=== PATIENT | female | born 1990 | race Two or more races ===

== ENCOUNTER 2018-08-08 16:55 | Inpatient (IN) | payer MEDICARE | END 2018-08-11 20:00 | disposition left against medical advice (07) | DRG 894 | LOC: C.ER 16:55 → C.7D 19:09 | PROC: HZ2ZZZZ Detoxification Services for Substance Abuse Treatment (ICD-10-PCS; principal; 2018-08-08) | PROC: HZ86ZZZ Medication Management for Substance Abuse Treatment, Clonidine (ICD-10-PCS; 2018-08-08) | PROC: HZ80ZZZ Medication Management for Substance Abuse Treatment, Nicotine Replacement (ICD-10-PCS; 2018-08-08) | PROC: GZ3ZZZZ Medication Management (ICD-10-PCS; 2018-08-08) | PROC: HZ59ZZZ Individual Psychotherapy for Substance Abuse Treatment, Supportive (ICD-10-PCS; 2018-08-08) | PROC: HZ56ZZZ Individual Psychotherapy for Substance Abuse Treatment, Psychoeducation (ICD-10-PCS; 2018-08-08) | DX: F10.230 Alcohol dependence with withdrawal, uncomplicated (principal); F11.20 Opioid dependence, uncomplicated; F13.20 Sedative, hypnotic or anxiolytic dependence, uncomplicated; F41.9 Anxiety disorder, unspecified; F60.3 Borderline personality disorder; F17.210 Nicotine dependence, cigarettes, uncomplicated; Y90.6 Blood alcohol level of 120-199 mg/100 ml; G40.909 Epilepsy, unspecified, not intractable, without status epilepticus; K31.84 Gastroparesis; K58.9 Irritable bowel syndrome, unspecified; F50.9 Eating disorder, unspecified ==

== ENCOUNTER 2018-08-19 14:25 | Inpatient (IN) | payer MEDICARE ==
[2018-08-19 14:25] VITALS: BMI 19.5
--- NOTE | 2018-08-19 14:29 | C.PDOC ---
History Of Present Illness 27 y/o female,w/PMhx of opiate abuse,IVDU, neuropathy, gastroparesis,and seizures, presents to the ER complaining of suicidal ideation which has been present for the past 1 week. Patient states that she wants to jump in front of car and she wants to overdose on home medications. Fiance at bedside states that patient has tried to overdose on Baclofen, Lyrica, Neurontin, and heroin 4 days prior. She states that she was evaluated for same complaint in [facility] 4 days ago. She was medically and psychiatrically cleared. However, she notes that she continues to have suicidal ideation. She and fiance watching her since she has been discharged deny that the patient overdosed or took any medications or drugs since being discharged from [facility]. She states that she has chronic abdominal pain which is mildly different from her usual pain. Denies having fever,chills, nausea, vomiting, diarrhea, vaginal discharge, vaginal bleeding, falls, and trauma. Time Seen by Provider: 08/19/18 14:29 Chief Complaint (Nursing): Psychiatric Evaluation History Per: Patient History/Exam Limitations: no limitations Onset/Duration Of Symptoms: Days Current Symptoms Are (Timing): Still Present Severity: Moderate Past Medical History Reviewed: Historical Data, Nursing Documentation, Vital Signs - Medical History PMH: Seizures Surgical History: No Surg Hx - [facility] Procedures DETOXIFICATION SERVICES FOR SUBSTANCE ABUSE TREATMENT (08/08/18) INDIV PSYCHOTHERAPY FOR SUBSTANCE ABUSE TREATMENT, SUPPORT (08/08/18) INDIV PSYCHOTHERAPY FOR SUBSTANCE ABUSE, PSYCHOEDUCATION (08/08/18) MEDICATION MANAGEMENT (08/08/18) MEDS MGMT FOR SUBSTANCE ABUSE TREATMENT, CLONIDINE (08/08/18) MEDS MGMT FOR SUBSTANCE ABUSE TREATMENT, NICOTINE REPLACE (08/08/18) Family History: States: No Known Family Hx - Social History Hx Alcohol Use: Yes Hx Substance Use: Yes - Immunization History Hx Tetanus Toxoid Vaccination: No Hx Influenza Vaccination: No Hx Pneumococcal Vaccination: No Review Of Systems Constitutional: Negative for: Fever, Chills Eyes: Negative for: Pain, Vision Change, Eyelid Inflammation, Redness ENT: Negative for: Ear Pain, Ear Discharge, Nose Congestion, Mouth Pain, Mouth Swelling Cardiovascular: Negative for: Chest Pain, Palpitations, Orthopnea, Edema, Light Headedness Respiratory: Negative for: Cough, Shortness of Breath, SOB with Excertion Gastrointestinal: Positive for: Abdominal Pain. Negative for: Nausea, Vomiting, Diarrhea, Constipation, Melena, Hematemesis Genitourinary: Negative for: Dysuria, Frequency, Vaginal Discharge, Vaginal Bleeding Musculoskeletal: Negative for: Neck Pain, Shoulder Pain, Back Pain Skin: Negative for: Lesions Neurological: Negative for: Weakness, Numbness, Headache Psych: Positive for: Suicidal ideation Physical Exam - Physical Exam Appears: Non-toxic, No Acute Distress Skin: Normal Color, Warm, Dry Head: Atraumatic, Normacephalic Eye(s): bilateral: Normal Inspection, PERRL, EOMI Ear(s): Bilateral: Normal Nose: Normal Oral Mucosa: Moist Tongue: Normal Appearing Lips: Normal Appearing Teeth: Normal Dentition Gingiva: Normal Appearing Throat: Normal, No Erythema, No Exudate, No Drooling, No Mass Neck: Normal, Normal ROM, No Midline Cervical Tenderness, Supple, Other (no meningeal signs) Chest: Symmetrical Cardiovascular: Rhythm Regular Respiratory: Normal Breath Sounds, No Rales, No Rhonchi, No Wheezing Gastrointestinal/Abdominal: Soft, Tenderness (epigastric tenderness), No Guarding, No Rebound Back: Normal Inspection, No CVA Tenderness Extremity: Normal ROM Extremity: Bilateral: Atraumatic, No Pedal Edema, Pelvis-Stable Neurological/Psych: Oriented x3, Normal Speech, Normal Cognition, No Cerebellar Signs, Normal Motor Gait: Steady ED Course And Treatment - Laboratory Results Result Diagrams: 08/20/18 06:24 08/20/18 06:24 Medical Decision Making Medical Decision Makin27 y/o female,w/PMhx of opiate abuse,IVDU, neuropathy, gastroparesis,and seizures, presents to the ER complaining of suicidal ideation which has been present for the past 1 week. Per fiance and pt, she denies any heroin use today or OD on any meds today. Impression: Suicidal Ideation, Recent Suicide Attempt, Abdominal Pain Plan: --Labs --EKG --CXR --UA --HCG, Qual. --CT-Abd Results EKG: NSR 95 bpm with normal intervals no STEMI RLL infilatrate vs atelactisis on XRAY, will rx possible, low probabily pna CURB 65 score low: no indication for admission pending CT abd pelvis 1803 CT w/ proctitis and constipation pt denies any rectal complaints however or rectal rash or itchiness procitis likely 2/2 constipation. will reccomend miralax to patient 1043 pt continues to be tired, will attempt narcan Pt awakens with narcan Per and patient: patient may have OD on atarax, heroin, neurontin, baclofen and lyrica No rigidity noted on exam, No clonus in LE. EKG w/ out AVR R wave elevation. No long Qt. 1115 pt becoming more somolent, but protecting airway well pt awakens w/ 2nd narcan, narcan drip ordered RN spoke to Poison control: no other intervention other than supportive management at this time. accepted by DR. Malave ICU accepted by DR. Gene KING Disposition - Disposition Disposition: HOSPITALIZED Disposition Time: 23:16 Condition: STABLE - Clinical Impression Clinical Impression: Drug overdose, Suicidal ideation - Scribe Statement The provider has reviewed the documentation as recorded by the Christopher Khan Provider Attestation: All medical record entries made by the Scribe were at my direction and personally dictated by me. I have reviewed the chart and agree that the record a ccurately reflects my personal performance of the history, physical exam, medical decision making, and the department course for this patient. I have also personally directed, reviewed, and agree with the discharge instructions and disposition.
[2018-08-19 15:17] LABS: HEMOGLOBIN 13.6 g/dL (11.0-16.0); LYMPH # 1.1 K/uL (1.0-4.3); LYMPH % 18.1 % (20.0-40.0); MEAN CELL VOLUME 87.8 fL (81.0-99.0); MEAN CORPUSCULAR HGB CONC 34.1 g/dL (33.0-37.0); MEAN PLATELET VOLUME 6.6 fL (7.2-11.7); MONO # 0.6 K/uL (0.0-0.8); MONO % 9.8 % (0.0-10.0); NEUT # 4.2 K/uL (1.8-7.0); NEUT % 72.1 % (50.0-75.0); RBC 4.52 Mil/uL (3.80-5.20); RED CELL DISTRIBUTION WIDTH 13.8 % (11.5-14.5); WHITE BLOOD COUNT 5.9 K/uL (4.8-10.8)
[2018-08-19 15:31] LABS: ACETAMINOPHEN < 10.0 ug/mL (10.0-30.0); ALB/GLOB RATIO 1.2 (1.0-2.1); ALBUMIN 4.2 g/dL (3.5-5.0); ALT/SGPT 27 U/L (9-52); AST/SGOT 39 U/L (14-36); BLOOD UREA NITROGEN 7 mg/dL (7-17); CALCIUM 9.8 mg/dl (8.6-10.4); GFR NON-AFRICAN AMERICAN > 60; SALICYLATE < 1.0 {null, mg/dL 1}
[2018-08-19 15:32] LABS: SQUAMOUS EPITHIAL 16 /hpf (0-5); URINE AMORPHOUS SEDIMENT MODERATE /ul (<OCC); URINE BILIRUBIN NEGATIVE (NEGATIVE); URINE BLOOD NEGATIVE (NEGATIVE); URINE CLARITY Turbid (Clear); URINE COLOR Amber (YELLOW); URINE GLUCOSE (UA) NORMAL (Normal); URINE LEUKOCYTE ESTERASE TRACE Leu/uL (Negative); URINE PROTEIN 1+ mg/dL (NEGATIVE)
--- NOTE | 2018-08-19 15:51 | RAD ---
HISTORY: Detox/Psy COMPARISON: None available. TECHNIQUE: Chest, one view. FINDINGS: LUNGS: Mild patchy right lower lobe atelectasis or infiltrate. Please note that chest x-ray has limited sensitivity for the detection of pulmonary masses. PLEURA: No significant pleural effusion identified. No definite pneumothorax . CARDIOVASCULAR: Heart size appears top normal. No significant atherosclerotic calcification present. OSSEOUS STRUCTURES: No acute osseous abnormality identified. VISUALIZED UPPER ABDOMEN: Unremarkable. OTHER FINDINGS: None. IMPRESSION: Mild patchy right lower lobe atelectasis or infiltrate.
[2018-08-19 15:57] LABS: BARBITURATES, UR POSITIVE (NEGATIVE); BENZODIAZEPINES, UR POSITIVE (NEGATIVE); OPIATES, UR POSITIVE (NEGATIVE); PHENCYCLIDINE, UR NEGATIVE (NEGATIVE)
[2018-08-19] MEDS ORDERED: Iohexol 350mg/ml 100 ML ONE ×2 (16:15→22:56)
--- NOTE | 2018-08-19 17:55 | CT ---
Date of service: 08/19/2018 PROCEDURE: CT Abdomen and Pelvis with contrast HISTORY: hx of ibs, p/w depression and abd pain COMPARISON: None available. TECHNIQUE: Contrast dose: 100 mL Omnipaque 350 IV Radiation dose: Total exam DLP = 488.91 mGy-cm. This CT exam was performed using one or more of the following dose reduction techniques: Automated exposure control, adjustment of the mA and/or kV according to patient size, and/or use of iterative reconstruction technique. FINDINGS: Evaluation limited due to paucity of intra-abdominal and intrapelvic fat. LOWER THORAX: No visible consolidation, pleural effusion, or pneumothorax. LIVER: Unremarkable. GALLBLADDER AND BILE DUCTS: Unremarkable. PANCREAS: Unremarkable. SPLEEN: Unremarkable. ADRENALS: Unremarkable. KIDNEYS AND URETERS: The kidneys enhance symmetrically. No hydronephrosis or obstructing calculus identified. VASCULATURE: No aortic aneurysm. No atherosclerotic calcification or mural plaque present. BOWEL: Stomach is nondistended. Lack of oral contrast limits evaluation for bowel pathology. Bowel loops appear within normal limits of caliber without evidence of obstruction. Severe diffuse constipation. Severe rectal wall thickening. APPENDIX: The appendix appears within normal limits of caliber. No secondary signs of acute appendicitis. PERITONEUM: No significant free fluid. No definite free air. LYMPH NODES: No bulky adenopathy identified. BLADDER: Unremarkable. REPRODUCTIVE: The uterus is present. BONES: No acute osseous abnormality is detected. OTHER FINDINGS: None. IMPRESSION: Severe rectal wall thickening; correlate clinically for possibility of proctitis. Further evaluation may be considered with colonoscopy if indicated. Severe diffuse constipation. Markedly limited study due to paucity of intra-abdominal and intrapelvic fat. Additional findings as above.
[2018-08-19] MEDS ORDERED: Naloxone 0.4 mg/ml Inj (Adult) IVP ONE ×2 (21:06→22:44)
[2018-08-19] MEDS ORDERED: Naloxone 0.4 mg/ml Inj (Adult) ONE ×2 (21:14→22:47)
[2018-08-19] MEDS ORDERED: Naloxone 0.4 mg/ml Inj (Adult) IVP STA (22:49)
[2018-08-19] MEDS ORDERED: Dextrose 5%/0.9% NS 1,000 ML IV SCH (23:00)
[2018-08-19] MEDS ORDERED: NALOXONE IVP ONE (23:00)
[2018-08-19] MEDS ORDERED: WATER IVP ONE (23:00)
[2018-08-19] MEDS ORDERED: DEXTROSE 5% IVP ONE (23:00)
[2018-08-19] MEDS ORDERED: Naloxone 0.4 mg/ml Inj (Adult) IVP PRN (23:04)
--- NOTE | 2018-08-19 23:13 | CP.PCM.CON ---
History of Present Illness - History of Present Illness History of Present Illness: 27 year old single female with past psychiatric history significant for borderline personality d/o, alcohol, opiate, benzo use disorder who presents to [facility]. ICU consulted as patient is more sedated and IV narcan was pusehd by ED physician. Patient is sleepy moving from one side of the bed to next. no other information is avaialbel Pmx: polysubstance abuse psych hX: has been admitted to multiple hospitals, including [facility] and [facility] Review of Systems - Review of Systems Systems not reviewed;Unavailable: Altered Mental Status Past Patient History - Tetanus Immunizations Tetanus Immunization: Unknown - Past Medical History & Family History Past Medical History?: Yes - Past Social History Smoking Status: Heavy Smoker > 10 Cigarettes Daily - CARDIAC Hx Cardiac Disorders: No Hx Hypertension: No - PULMONARY Hx Tuberculosis: No - NEUROLOGICAL Hx Seizures: Yes - HEMATOLOGICAL/ONCOLOGICAL Hx Cancer: No Hx Human Immunodeficiency Virus (HIV): No - MUSCULOSKELETAL/RHEUMATOLOGICAL Hx Falls: No - GASTROINTESTINAL Hx Irritable Bowel: Yes Other/Comment: gastropharesis - GENITOURINARY/GYNECOLOGICAL Hx Sexually Transmitted Disorders: No - PSYCHIATRIC Hx Substance Use: Yes - SURGICAL HISTORY Hx Surgeries: No - ANESTHESIA Hx Anesthesia: No Meds Allergies/Adverse Reactions: Allergies Allergy/AdvReac Type Severity Reaction Status Date / Time latex Allergy RASH Verified 08/08/18 17:01 metoclopramide [From Reglan] Allergy RASH Verified 08/08/18 17:01 seizure meds Allergy RASH Uncoded 06/28/18 17:02 - Medications Medications: Current Medications Enoxaparin Sodium (Lovenox) 30 mg SC DAILY STACY Dextrose/Sodium Chloride (Dextrose 5%/0.9% Ns 1000 Ml) 1,000 mls @ 100 mls/hr IV .Q10H STACY Naloxone HCl 2 mg/ Dextrose 1,005 mls @ 135 mls/hr IVP ONCE ONE Stop: 08/20/18 06:26 Naloxone HCl (Narcan) 0.4 mg IVP Q1H PRN PRN Reason: Other Physical Exam - Constitutional Appears: Non-toxic - Head Exam Head Exam: ATRAUMATIC - Respiratory Exam Respiratory Exam: NORMAL BREATHING PATTERN - Cardiovascular Exam Cardiovascular Exam: +S1, +S2 - GI/Abdominal Exam GI & Abdominal Exam: Normal Bowel Sounds, Soft - Extremities Exam Extremities exam: Positive for: normal inspection. Negative for: pedal edema Results - Vital Signs Recent Vital Signs: Last Vital Signs Temp 97.6 F 08/19/18 21:20 Pulse 77 08/19/18 22:48 Resp 14 08/19/18 22:48 BP 100/70 08/19/18 22:48 Pulse Ox 98 08/19/18 22:48 - Labs Result Diagrams: 08/19/18 15:13 08/19/18 15:13 Labs: Laboratory Results - last 24 hr 08/19/18 08/19/18 08/19/18 15:13 15:13 15:13 WBC 5.9 RBC 4.52 Hgb 13.6 Hct 39.7 MCV 87.8 MCH 30.0 MCHC 34.1 RDW 13.8 Plt Count 401 H D MPV 6.6 L Neut % (Auto) 72.1 Lymph % (Auto) 18.1 L [place] % (Auto) 9.8 Eos % (Auto) 0.0 Baso % (Auto) 0.0 Neut # (Auto) 4.2 Lymph # (Auto) 1.1 [place] # (Auto) 0.6 Eos # (Auto) 0.0 Baso # (Auto) 0.0 Sodium 142 Potassium 4.1 Chloride 102 Carbon Dioxide 30 Anion Gap 15 BUN 7 Creatinine 0.8 Est GFR ( Amer) > 60 Est GFR (Non-Af Amer) > 60 Random Glucose 98 Calcium 9.8 Phosphorus 6.0 H Magnesium 1.9 Total Bilirubin 0.3 AST 39 H D ALT 27 Alkaline Phosphatase 63 Total Protein 7.6 Albumin 4.2 Globulin 3.4 Albumin/Globulin Ratio 1.2 Urine Color Muna Urine Clarity Turbid Urine pH 7.0 Ur Specific [place] 1.016 Urine Protein 1+ H Urine Glucose (UA) Normal Urine Ketones Negative Urine Blood Negative Urine Nitrate Negative Urine Bilirubin Negative Urine Urobilinogen 2.0 H Ur Leukocyte Esterase Trace Urine WBC (Auto) 2 Urine RBC (Auto) 1 Ur Squamous Epith Cells 16 H Amorphous Sediment Moderate H Salicylates Urine Opiates Screen Urine Methadone Screen Acetaminophen Ur Barbiturates Screen Ur Phencyclidine Scrn Ur Amphetamines Screen U Benzodiazepines Scrn U Oth Cocaine Metabols U Cannabinoids Screen Alcohol, Quantitative < 10 08/19/18 08/19/18 15:13 15:13 WBC RBC Hgb Hct MCV MCH MCHC RDW Plt Count MPV Neut % (Auto) Lymph % (Auto) [place] % (Auto) Eos % (Auto) Baso % (Auto) Neut # (Auto) Lymph # (Auto) [place] # (Auto) Eos # (Auto) Baso # (Auto) Sodium Potassium Chloride Carbon Dioxide Anion Gap BUN Creatinine Est GFR ( Amer) Est GFR (Non-Af Amer) Random Glucose Calcium Phosphorus Magnesium Total Bilirubin AST ALT Alkaline Phosphatase Total Protein Albumin Globulin Albumin/Globulin Ratio Urine Color Urine Clarity Urine pH Ur Specific [place] Urine Protein Urine Glucose (UA) Urine Ketones Urine Blood Urine Nitrate Urine Bilirubin Urine Urobilinogen Ur Leukocyte Esterase Urine WBC (Auto) Urine RBC (Auto) Ur Squamous Epith Cells Amorphous Sediment Salicylates < 1.0 Urine Opiates Screen Positive H Urine Methadone Screen Negative Acetaminophen < 10.0 L Ur Barbiturates Screen Positive H Ur Phencyclidine Scrn Negative Ur Amphetamines Screen Negative U Benzodiazepines Scrn Positive U Oth Cocaine Metabols Negative U Cannabinoids Screen Negative Alcohol, Quantitative Assessment & Plan - Assessment and Plan (Free Text) Assessment: POlysubstance abuse: monitor for first 24 hours (alowing recreational drug to metabolize) -IVF: d5NS -narcan PRN RR <10 -ct head(pending) -BGM q6hrs contineu dvt/pud ppx -psych eval when awake QTC 467 - Date & Time Date: 08/19/18 Time: 23:15
[2018-08-19] MEDS ORDERED: WATER IV ONE (23:30)
[2018-08-19] MEDS ORDERED: DEXTROSE 5% IV ONE (23:30)
[2018-08-19] MEDS ORDERED: NALOXONE IV ONE (23:30)
[2018-08-19] MEDS: Dextrose 5%/Lactated Ringer's 1,000 ML IV SCH (23:40)
[2018-08-20 06:34] LABS: BASO % 0.1 % (0.0-2.0); LYMPH # 0.6 K/uL (1.0-4.3); LYMPH % 12.5 % (20.0-40.0); MEAN CELL VOLUME 87.7 fL (81.0-99.0); MEAN CORPUSCULAR HEMOGLOBIN 30.1 pg (27.0-31.0); MEAN CORPUSCULAR HGB CONC 34.3 g/dL (33.0-37.0); MEAN PLATELET VOLUME 6.7 fL (7.2-11.7); MONO # 0.3 K/uL (0.0-0.8); MONO % 6.3 % (0.0-10.0); NEUT # 4.1 K/uL (1.8-7.0); NEUT % 81.1 % (50.0-75.0); NRBC % 0.1 % (0.0-2.0); RBC 4.31 Mil/uL (3.80-5.20); RED CELL DISTRIBUTION WIDTH 13.7 % (11.5-14.5); WHITE BLOOD COUNT 5.1 K/uL (4.8-10.8)
--- NOTE | 2018-08-20 06:47 | CT ---
Date of service: 08/20/2018 PROCEDURE: CT HEAD WITHOUT CONTRAST. HISTORY: Lethargic. Overdose. COMPARISON: None available. TECHNIQUE: Axial computed tomography images were obtained through the head/brain without intravenous contrast. Radiation dose: Total exam DLP = 928.87 mGy-cm. This CT exam was performed using one or more of the following dose reduction techniques: Automated exposure control, adjustment of the mA and/or kV according to patient size, and/or use of iterative reconstruction technique. FINDINGS: HEMORRHAGE: No intracranial hemorrhage. BRAIN: No mass effect or edema. No atrophy or chronic microvascular ischemic changes. VENTRICLES: Unremarkable. No hydrocephalus. CALVARIUM: Unremarkable. PARANASAL SINUSES: Unremarkable as visualized. No significant inflammatory changes. MASTOID AIR CELLS: Unremarkable as visualized. No inflammatory changes. OTHER FINDINGS: None. IMPRESSION: No acute intracranial abnormality. If symptoms persists, consider correlation with MRI. A preliminary report was generated at 1:09 a.m. on 08/20/[address] Radha Parish from [facility].
[2018-08-20 06:55] LABS: ALB/GLOB RATIO 1.1 (1.0-2.1); ALBUMIN 3.3 g/dL (3.5-5.0); ALT/SGPT 20 U/L (9-52); AST/SGOT 38 U/L (14-36); BLOOD UREA NITROGEN 5 mg/dL (7-17); CALCIUM 9.2 mg/dl (8.6-10.4); GFR NON-AFRICAN AMERICAN > 60
[2018-08-20] MEDS ORDERED: Promethazine 12.5 mg/10 ml Syrup PO PRN (08:24)
[2018-08-20] MEDS: Dextrose 5%/Lactated Ringer's 1,000 ML IV SCH ×2 (09:30→18:37)
[2018-08-20] MEDS: Multivitamin (MVI) 10 ML, Thiamine 100 MG, Folic Acid 1 MG in Sodium Chloride 0.9% 1,00... IV ONE ×2 (09:30→12:35)
--- NOTE | 2018-08-20 10:06 | PCM.PSYCH ---
Initial Psychiatric Evaluation - Initial Psychiatric Evaluation Type of Admission: Voluntary Legal Status: Capacity Chief Complaint (in patient's own words): I tried to kill myself.' History of Present Illness and Precipitating Events: Pt is a 27 year old female with PMHx of mood disorder, borderline personality disorder, opioid use disorder and sedated/hypnotic use disorder presented to the [facility] ED after a suicide attempt by overdosing on multiple medications. Pt was examined at bedside in the ICU with the presence of security. Collaterals were obtained from the boyfriend. As per the patient's boyfriend, she has attempted to overdose over 7x in the past. He says she never finished detox before and always leaves. He says pt has been acting suicidal few a few days. She told him yesterday that she wanted to kill herself by running into oncoming traffic or she will cut her artery. When he came home from work yesterday 08/19/18 at 11am, pt was on the phone arguing with her mother. He notes she was panicking, but was lucid. He did not witness her using but believes she took Baclofen, Neurontin, Lyrica, and Heroin together to overdose. He brought her to [facility] in [place] and she walked there with him from [facility]. He notes that she was fine until they came to the hospital when she started to became disoriented and agitated. Patient reports a long history of mood disorder and polysubstance abuse disorder. As per the patient soon after discharge from the detox at . she relapsed on drugs and started abusing increasing amounts of heroin, alcohol, and benzodiazepines. She uses 10 bags of heroin per day and drinks 2 pints of vodka per day. Pt has been taking them consistently at this level for the past 3 months. Her last use was either 2 days ago or yesterday. As per the ED charts, multiple doses of Narcan was given when the patient was brought to the hospital. She reports irritable mood, racing thoughts, poor sleep and poor appetite. She also reports at times depressed mood, feelings of hopelessness and helplessness. She also reports withdrawal symptoms from heroin including nausea, vomiting, cramps, joint pains and muscle cramps. However she denies any auditory hallucinations or any paranoia. PMHx: None reported Current Medications: Active Medications Generic Name Dose Route Start Last Admin Trade Name Freq PRN Reason Stop Dose Admin Al Hydrox/Mg Hydrox/Simethicone 30 ml 08/20/18 11:30 Maalox 30 Ml PO ACHS [facility] Chlorpromazine 25 mg 08/20/18 08:41 08/20/18 09:00 Thorazine IM 25 mg Q4 PRN Administration nausea Clonidine HCl 0.1 mg 08/20/18 10:00 Catapres PO BID [facility] Enoxaparin Sodium 30 mg 08/20/18 10:00 Lovenox SC DAILY [facility] Erythromycin 250 mg 08/20/18 10:00 Erythromycin PO TID [facility] Protocol Dextrose/Lactated Ringer's 1,000 mls @ 100 mls/hr 08/19/18 23:30 08/19/18 23:40 Dextrose 5%/Lactated Ringer's IV 100 mls/hr .Q10H STACY Administration Multivitamins/Vitamin C 10 ml/ 1,011.2 mls @ 75 mls/hr 08/20/18 09:00 Thiamine HCl 100 mg/ Folic IV 08/20/18 22:28 Acid 1 mg/ Sodium Chloride .[id number] ONE Lorazepam 1 mg 08/20/18 09:11 08/20/18 09:19 Ativan IVP 1 mg Q6H PRN Administration Anxiety Naloxone HCl 0.4 mg 08/19/18 23:04 Narcan IVP Q1H PRN Other Past Psychiatric History - Past Psychiatric History Previous Treatment History: Inpatient Pertinent Medical Hx (Current Medical&Sleep Prob, Allergies): Allergies Allergy/AdvReac Type Severity Reaction Status Date / Time latex Allergy RASH Verified 08/08/18 17:01 metoclopramide [From Reglan] Allergy RASH Verified 08/08/18 17:01 seizure meds Allergy RASH Uncoded 06/28/18 17:02 Cyclobenzaprine [Flexeril] 5 mg PO BID PRN 08/08/18 Promethazine [Phenergan] 25 mg PO BID PRN 08/08/18 QUEtiapine [SEROquel] 300 mg PO HS 08/08/18 hydrOXYzine HCl [Atarax] 50 mg PO TID PRN 08/08/18 Review of Systems - Review of Systems All systems: reviewed and no additional remarkable complaints except DSM 5 DX - DSM 5 DSM 5 Diagnosis: Bipolar disorder depressed severe without psychotic features Alcohol use disorder severe Opioid use disorder severe Opioid withdrawal Sedated/hypnotic use disorder severe Sedative/hypnotic withdrawal - Recommended/Plan of Treatment Treatment Recommendations and Plan of Treatment: Bipolar disorder depressed severe without psychotic features Alcohol use disorder severe Opioid use disorder severe Opioid withdrawal Sedated/hypnotic use disorder severe Sedative/hypnotic withdrawal CBT Supportive therapy Psychoeducation Methadone taper for opiate withdrawal Ativan taper for sedated/hypnotic withdrawal Trazodone for insomnia Hydroxyzine for anxiety Neurontin for augmentation Paxil for depression. Patient is on one-to-one. She cannot contract for safety. She has history of multiple overdoses in the past. [facility] will be called for involuntary hospitalization. - Smoking Cessation Smoking Cessation Initiated: No
[2018-08-20] MEDS: Enoxaparin 30 mg Syringe SC SCH (10:26)
--- NOTE | 2018-08-20 10:46 | CP.PCM.PN ---
Subjective - Date & Time of Evaluation Date of Evaluation: 08/20/18 Time of Evaluation: 10:46 - Subjective Subjective: H&P dictated #[id number] Objective - Vital Signs/Intake and Output Vital Signs (last 24 hours): Temp Pulse Resp BP Pulse Ox 98.2 F 94 H 15 113/72 98 08/20/18 08:00 08/20/18 08:45 08/20/18 08:45 08/20/18 09:22 08/20/18 08:45 Intake and Output: 08/20/18 08/20/18 06:59 18:59 Intake Total 1410 500 Output Total 1150 300 Balance 260 200 - Medications Medications: Current Medications Al Hydrox/Mg Hydrox/Simethicone (Maalox 30 Ml) 30 ml PO ACHS [facility] Chlorpromazine (Thorazine) 25 mg IM Q4 PRN PRN Reason: nausea Last Admin: 08/20/18 09:00 Dose: 25 mg Clonidine HCl (Catapres) 0.1 mg PO BID [facility] Last Admin: 08/20/18 10:26 Dose: 0.1 mg Dicyclomine HCl (Bentyl) 10 mg PO Q6 PRN PRN Reason: Muscle spasm Last Admin: 08/20/18 10:44 Dose: 10 mg Enoxaparin Sodium (Lovenox) 30 mg SC DAILY [facility] Last Admin: 08/20/18 10:26 Dose: 30 mg Erythromycin (Erythromycin) 250 mg PO TID [facility]; Protocol Last Admin: 08/20/18 10:26 Dose: 250 mg Dextrose/Lactated Ringer's (Dextrose 5%/Lactated Ringer's) 1,000 mls @ 100 mls/hr IV .Q10H [facility] Last Admin: 08/19/18 23:40 Dose: 100 mls/hr Multivitamins/Vitamin C 10 ml/Thiamine HCl 100 mg/ Folic Acid 1 mg/ Sodium Chloride 1,011.2 mls @ 75 mls/hr IV .[id number] ONE Stop: 08/20/18 22:28 Loperamide HCl (Imodium) 2 mg PO Q8 PRN PRN Reason: Diarrhea Lorazepam (Ativan) 2 mg IVP Q4H PRN PRN Reason: Anxiety Naloxone HCl (Narcan) 0.4 mg IVP Q1H PRN PRN Reason: Other Ondansetron HCl (Zofran Tab) 4 mg PO Q8 PRN PRN Reason: Nausea/Vomiting Ondansetron HCl (Zofran Inj) 4 mg IVP Q6 PRN PRN Reason: Nausea/Vomiting - Labs Labs: 08/20/18 06:24 08/20/18 06:24
[2018-08-20] MEDS: Aluminum Hydroxide/Magnesium Hydroxide Susp (30 mL) PO SCH ×3 (11:54→21:30)
[2018-08-20] MEDS ORDERED: Iodixanol 320 MG/ML 100 ML BOTTLE IV ONE (15:54)
[2018-08-20] MEDS: POLYETHYLENE GLYCOL 3350 17 GM/Dose PACKET PO SCH (17:27)
--- NOTE | 2018-08-20 17:36 | CP.CCUPN ---
CCU Objective - Vital Signs / Intake & Output Vital Signs (Last 4 hours): Vital Signs Temp Pulse Resp BP Pulse Ox 08/20/18 15:00 97.4 F L 82 20 90/62 L 98 Intake and Output (Last 8hrs): Intake & Output 08/20/18 08/20/18 08/20/18 06:59 14:59 22:59 Intake Total 1410 1522.5 37.5 Output Total 1150 2200 500 Balance 260 -677.5 -462.5 Weight 104 lb 11.513 oz Intake: Intake, IV Amount 1410 412.5 37.5 Left Antecubital 810 0 Left Distal Port 600 412.5 37.5 Antecubital Oral 1110 Output: Urine 1150 1500 500 Urine, Voided 1150 1500 500 Stool 0 0 Emesis 0 700 Other: # Voids Urine, Voided 1 4 - Physical Exam Head: Positive for: Atraumatic, Normocephalic Pupils: Positive for: PERRL Extroacular Muscles: Positive for: EOMI Conjunctiva: Positive for: Normal Ears: Positive for: Normal Mouth: Positive for: Moist Mucous Membranes Neck: Positive for: Normal Range of Motion Respiratory/Chest: Positive for: Clear to Auscultation Cardiovascular: Positive for: Regular Rate and Rhythm Abdomen: Positive for: Normal Bowel Sounds. Negative for: Tenderness, Distention Neurological: Positive for: GCS=15, CN II-XII Intact Psychiatric: Positive for: Alert, Oriented x 3, Agitated - Medications Active Medications: Active Medications Generic Name Dose Route Start Last Admin Trade Name Freq PRN Reason Stop Dose Admin Al Hydrox/Mg Hydrox/Simethicone 30 ml 08/20/18 11:30 08/20/18 17:27 Maalox 30 Ml PO Not Given ACHS STACY Chlorpromazine 50 mg 08/20/18 14:30 Thorazine IM Q4H PRN Clonidine HCl 0.1 mg 08/20/18 10:00 08/20/18 17:02 Catapres PO Not Given BID STACY Dicyclomine HCl 10 mg 08/20/18 10:06 08/20/18 10:44 Bentyl PO 10 mg Q6 PRN Administration Muscle spasm Enoxaparin Sodium 30 mg 08/20/18 10:00 08/20/18 10:26 Lovenox SC 30 mg DAILY STACY Administration Erythromycin 250 mg 08/20/18 10:00 08/20/18 14:55 Erythromycin PO 250 mg TID STACY Administration Protocol Gabapentin 300 mg 08/20/18 18:00 Neurontin PO TID STACY Dextrose/Lactated Ringer's 1,000 mls @ 100 mls/hr 08/19/18 23:30 08/20/18 09:30 Dextrose 5%/Lactated Ringer's IV Not Given .Q10H STACY Multivitamins/Vitamin C 10 ml/ 1,011.2 mls @ 75 mls/hr 08/20/18 09:00 08/20/18 12:35 Thiamine HCl 100 mg/ Folic IV 08/20/18 22:28 75 mls/hr Acid 1 mg/ Sodium Chloride .[id number] Administration Lorazepam 2 mg 08/20/18 12:00 08/20/18 17:27 Ativan IVP 2 mg Q4H PRN Administration Anxiety Methadone HCl 20 mg 08/20/18 11:45 08/20/18 11:54 Methadone PO 08/24/18 11:44 20 mg Q24H STACY Administration Taper Naloxone HCl 0.4 mg 08/19/18 23:04 Narcan IVP Q1H PRN Other Ondansetron HCl 4 mg 08/20/18 10:06 Zofran Tab PO Q8 PRN Nausea/Vomiting Ondansetron HCl 4 mg 08/20/18 10:13 Zofran Inj IVP Q6 PRN Nausea/Vomiting Polyethylene Glycol 17 gm 08/20/18 18:00 08/20/18 17:27 Miralax PO 17 gm BID STACY Administration Trazodone HCl 50 mg 08/20/18 22:00 Desyrel PO HS [facility] - Patient Studies Lab Studies: Microbiology Studies 08/19/18 04:25 MRSA Culture (Admit) - Final Nose Lab Studies 08/20/18 08/20/18 08/20/18 Range/Units 16:32 06:24 06:24 WBC 5.1 (4.8-10.8) K/uL RBC 4.31 (3.80-5.20) Mil/uL Hgb 13.0 (11.0-16.0) g/dL Hct 37.8 (34.0-47.0) % MCV 87.7 (81.0-99.0) fL MCH 30.1 (27.0-31.0) pg MCHC 34.3 (33.0-37.0) g/dL RDW 13.7 (11.5-14.5) % Plt Count 404 H (130-400) K/uL MPV 6.7 L (7.2-11.7) fL Neut % (Auto) 81.1 H (50.0-75.0) % Lymph % (Auto) 12.5 L (20.0-40.0) % [place] % (Auto) 6.3 (0.0-10.0) % Eos % (Auto) 0.0 (0.0-4.0) % Baso % (Auto) 0.1 (0.0-2.0) % Neut # (Auto) 4.1 (1.8-7.0) K/uL Lymph # (Auto) 0.6 L (1.0-4.3) K/uL [place] # (Auto) 0.3 (0.0-0.8) K/uL Eos # (Auto) 0.0 (0.0-0.7) K/uL Baso # (Auto) 0.0 (0.0-0.2) K/uL Sodium 139 (132-148) mmol/L Potassium 4.2 (3.6-5.2) mmol/L Chloride 105 (98-107) mmol/L Carbon Dioxide 26 (22-30) mmol/L Anion Gap 13 (10-20) BUN 5 L (7-17) mg/dL Creatinine 0.7 (0.7-1.2) mg/dL Est GFR ( Amer) > 60 Est GFR (Non-Af Amer) > 60 POC Glucose (mg/dL) 127 H (65-110) mg/dL Random Glucose 127 H D (65-105) mg/dL Serum Osmolality (272-300) mosm/kg Calcium 9.2 (8.6-10.4) mg/dl Phosphorus 3.9 (2.5-4.5) mg/dL Magnesium 1.9 (1.6-2.3) mg/dL Total Bilirubin 0.3 (0.2-1.3) mg/dL AST 38 H (14-36) U/L ALT 20 (9-52) U/L Alkaline Phosphatase 52 (38-126) U/L Total Protein 6.2 L (6.3-8.3) g/dL Albumin 3.3 L D (3.5-5.0) g/dL Globulin 2.9 (2.2-3.9) gm/dL Albumin/Globulin Ratio 1.1 (1.0-2.1) Urine HCG, Qual (NEGATIVE) 08/19/18 08/19/18 08/19/18 Range/Units 23:12 15:36 06:24 WBC (4.8-10.8) K/uL RBC (3.80-5.20) Mil/uL Hgb (11.0-16.0) g/dL Hct (34.0-47.0) % MCV (81.0-99.0) fL MCH (27.0-31.0) pg MCHC (33.0-37.0) g/dL RDW (11.5-14.5) % Plt Count (130-400) K/uL MPV (7.2-11.7) fL Neut % (Auto) (50.0-75.0) % Lymph % (Auto) (20.0-40.0) % [place] % (Auto) (0.0-10.0) % Eos % (Auto) (0.0-4.0) % Baso % (Auto) (0.0-2.0) % Neut # (Auto) (1.8-7.0) K/uL Lymph # (Auto) (1.0-4.3) K/uL [place] # (Auto) (0.0-0.8) K/uL Eos # (Auto) (0.0-0.7) K/uL Baso # (Auto) (0.0-0.2) K/uL Sodium (132-148) mmol/L Potassium (3.6-5.2) mmol/L Chloride (98-107) mmol/L Carbon Dioxide (22-30) mmol/L Anion Gap (10-20) BUN (7-17) mg/dL Creatinine (0.7-1.2) mg/dL Est GFR ( Amer) Est GFR (Non-Af Amer) POC Glucose (mg/dL) 84 (65-110) mg/dL Random Glucose (65-105) mg/dL Serum Osmolality 292 (272-300) mosm/kg Calcium (8.6-10.4) mg/dl Phosphorus (2.5-4.5) mg/dL Magnesium (1.6-2.3) mg/dL Total Bilirubin (0.2-1.3) mg/dL AST (14-36) U/L ALT (9-52) U/L Alkaline Phosphatase (38-126) U/L Total Protein (6.3-8.3) g/dL Albumin (3.5-5.0) g/dL Globulin (2.2-3.9) gm/dL Albumin/Globulin Ratio (1.0-2.1) Urine HCG, Qual Negative (NEGATIVE) Laboratory Results - last 24 hr 08/19/18 08/19/18 08/19/18 06:24 15:36 23:12 WBC RBC Hgb Hct MCV MCH MCHC RDW Plt Count MPV Neut % (Auto) Lymph % (Auto) [place] % (Auto) Eos % (Auto) Baso % (Auto) Neut # (Auto) Lymph # (Auto) [place] # (Auto) Eos # (Auto) Baso # (Auto) Sodium Potassium Chloride Carbon Dioxide Anion Gap BUN Creatinine Est GFR ( Amer) Est GFR (Non-Af Amer) POC Glucose (mg/dL) 84 Random Glucose Serum Osmolality 292 Calcium Phosphorus Magnesium Total Bilirubin AST ALT Alkaline Phosphatase Total Protein Albumin Globulin Albumin/Globulin Ratio Urine HCG, Qual Negative 08/20/18 08/20/18 08/20/18 06:24 06:24 16:32 WBC 5.1 RBC 4.31 Hgb 13.0 Hct 37.8 MCV 87.7 MCH 30.1 MCHC 34.3 RDW 13.7 Plt Count 404 H MPV 6.7 L Neut % (Auto) 81.1 H Lymph % (Auto) 12.5 L [place] % (Auto) 6.3 Eos % (Auto) 0.0 Baso % (Auto) 0.1 Neut # (Auto) 4.1 Lymph # (Auto) 0.6 L [place] # (Auto) 0.3 Eos # (Auto) 0.0 Baso # (Auto) 0.0 Sodium 139 Potassium 4.2 Chloride 105 Carbon Dioxide 26 Anion Gap 13 BUN 5 L Creatinine 0.7 Est GFR ( Amer) > 60 Est GFR (Non-Af Amer) > 60 POC Glucose (mg/dL) 127 H Random Glucose 127 H D Serum Osmolality Calcium 9.2 Phosphorus 3.9 Magnesium 1.9 Total Bilirubin 0.3 AST 38 H ALT 20 Alkaline Phosphatase 52 Total Protein 6.2 L Albumin 3.3 L D Globulin 2.9 Albumin/Globulin Ratio 1.1 Urine HCG, Qual Radiology Impressions: Radiology Impressions Abdomen/Pelvis CT 08/19/18 15:00 IMPRESSION: Severe rectal wall thickening; correlate clinically for possibility of proctitis. Further evaluation may be considered with colonoscopy if indicated. Severe diffuse constipation. Markedly limited study due to paucity of intra-abdominal and intrapelvic fat. Additional findings as above. Head CT 08/19/18 23:01 IMPRESSION: No acute intracranial abnormality. If symptoms persists, consider correlation with MRI. A preliminary report was generated at 1:09 a.m. on 08/20/[address] Radha Parish from [employer]. Fingerstick Blood Sugar Results: 127 Critical Care Progress Note - Nutrition Nutrition: Nutrition Category Date Time Status Regular Diet [DIET] Diets 08/20/18 Breakfast Active Assessment/Plan (1) Opiate dependence Assessment and plan: Patient is medically stable for downgrade to the floors and discharge to inpatient psych for further treatment of her possible suicidal ideations, borderline personality disorder and aggressive drug addiction. Started on methadone and CIWA protocol. Critical Care time 35 minutes Current Visit: No Status: Acute
--- NOTE | 2018-08-20 17:58 | CT ---
Date of service: 08/20/2018 PROCEDURE: CT Angiography of the Brain. HISTORY: ams COMPARISON: None available. TECHNIQUE: CT angiography of the intracranial arteries was performed. Coronal and sagittal maximum intensity projection reformated images were generated. Radiation dose: Total exam DLP = 412.22 mGy-cm. This CT exam was performed using one or more of the following dose reduction techniques: Automated exposure control, adjustment of the mA and/or kV according to patient size, and/or use of iterative reconstruction technique. FINDINGS: RIGHT CAROTID ARTERIES: Common Carotid Artery: Normal. Carotid Bifurcation: Normal. Internal Carotid Artery:Normal. External Carotid Artery (proximal branches): Normal. LEFT CAROTID ARTERIES: Common Carotid Artery: Normal. Carotid Bifurcation: Normal. Internal Carotid Artery:Normal. External Carotid Artery (proximal branches): Normal. VERTEBRAL ARTERIES: Right Vertebral Artery: Normal. Left Vertebral Artery: Normal. INTERNAL CEREBRAL ARTERIES: Unremarkable. The skull base, petrous, cavernous and supraclinoid segments are bilaterally widely patent. ANTERIOR CEREBRAL ARTERIES: Unremarkable. A1 and A2 segments are widely patent. Smaller distal branches unremarkable, as visualized. MIDDLE CEREBRAL ARTERIES: Unremarkable. M1 and M2 segments are widely patent. Perisylvian branches grossly symmetric. POSTERIOR CIRCULATION: Basilar Artery: Unremarkable. Distal Vertebral Arteries: Unremarkable. Posterior Cerebral Arteries: Unremarkable. Posterior Inferior Cerebellar Arteries: Unremarkable. ANEURYSM/ VASCULAR MALFORMATIONS: None. OTHER FINDINGS: None. IMPRESSION: No evidence of arterial occlusion or critical stenosis.
--- NOTE | 2018-08-21 04:22 | HP ---
CHIEF COMPLAINT: Suicidal ideation and drug overdose on multiple medications. HISTORY OF PRESENT ILLNESS: Ms. Millan is a 27-year-old female with past medical history of gastroparesis, irritable bowel syndrome, seizures, IVDA opiate-induced, neuropathy, who had multiple admissions to the psych floor in the past, came in to the emergency room complaining of suicidal ideation for the past one week. The patient claims that she wants to jump in front of the car and wants to overdose on home medications. She tried to overdose on Baclofen, Lyrica, Neurontin, and heroin four days prior. It was documented in the ER physician's note that she was evaluated for the same complaint by [facility] four days ago. The patient was evaluated in the ED and is being admitted to ICU. When I examined the patient, she denied any headache, dizziness. Denied any chest pain, shortness of breath, or wheezing. Denied any nausea, vomiting. In the emergency room, the patient was lethargic. The patient was started on Narcan and admitted to ICU. PAST MEDICAL HISTORY: Irritable bowel syndrome, gastroparesis, seizures, borderline personality disorder, substance abuse. PAST SURGICAL HISTORY: Denies any past surgical history. FAMILY HISTORY: Nothing contributory to the present illness. PERSONAL HISTORY: She is single. Not having any children. SOCIAL HISTORY: Smokes half pack per day. Uses drugs. Requesting for methadone. ALLERGIES: SHE IS ALLERGIC TO HALDOL. MEDICATIONS: Her home medications include hydroxyzine 50 mg p.o. t.i.d., Seroquel 300 mg p.o. at bedtime, Phenergan 25 mg p.o. b.i.d., Flexeril 5 mg p.o. b.i.d. REVIEW OF SYSTEMS: As described in the history of present illness. All other systems reviewed and were found to be negative. PHYSICAL EXAMINATION: GENERAL: A young female lying in bed, in no acute distress. VITAL SIGNS: Blood pressure 104/69, pulse 82, respirations are 20, temperature 97.8 degrees Fahrenheit, O2 sat is 98% on room air. HEENT: Pupils are equal, round, reacting to light and accommodation. Extraocular muscles intact. No icterus. No pallor. No oral thrush. No pharyngeal congestion. NECK: Supple. No JVD. LUNGS: Bilateral vesicular breath sounds. No wheezing. No rhonchi. CARDIOVASCULAR SYSTEM: S1 and S2 present. Regular. ABDOMEN: Soft, nontender. Bowel sounds present. No guarding. No rigidity. No rebound tenderness noted. CENTRAL NERVOUS SYSTEM: Alert, awake, oriented x3. No focal deficits noted. EXTREMITIES: No edema. Palpable peripheral pulses. LABORATORY DATA: Labs done from the ED: WBC 5.9, hemoglobin 13.6, hematocrit 39.7, platelets 401. Sodium 142, potassium 4.1, chloride 102, bicarb 30, BUN 7, creatinine 0.8, glucose 98, calcium 9.8, phosphorus 6, magnesium 1.9. Total bilirubin 0.3, AST 39, ALT 27, alkaline phosphatase 63, total protein 7.6, albumin 4.2. UA: Specific gravity 1.016, pH 7. Urobilinogen 2. Urine drug screen positive for opiates, barbiturates, and benzos; alcohol negative. Abdomen and pelvis CT; severe diffuse constipation, marked limited study due to paucity of intraabdominal and intrapelvic fat, severe rectal wall thickening. Chest x-ray, mild patchy right lower lobe atelectasis or infiltrate. CT head, negative for any intracranial abnormality. CT head and neck, no evidence of arterial occlusion or critical stenosis. EKG consistent with normal sinus rhythm with sharp CT interval at 95 beats per minute. ASSESSMENT: A young female with past medical history of borderline personality disorder, mood disorder, irritable bowel syndrome, gastroparesis, seizures, recent admission to [facility] in the month of July for drug abuse and detoxification, was evaluated at [facility] and discharged from the medical center, admitted to hospital for her suicidal ideation. 1. Suicidal ideation. 2. Bipolar disorder with severe depression. 3. Polysubstance abuse, alcohol abuse. PLAN: The patient is being admitted to ICU, monitored in the ICU for drug overdose, one-to-one observation, neuro checks, fall precaution, seizure prevention, and psychiatric consult with Dr. Mendosa. The patient would benefit from inpatient psychiatric treatment. All the workup so far is negative. We will add social insurance administrator consult. We will add further recommendations as her clinical course progresses. Zenia Coleman MD
[2018-08-21] MEDS: Dextrose 5%/Lactated Ringer's 1,000 ML IV SCH ×2 (06:51→15:47)
[2018-08-21 08:42] LABS: HEMOGLOBIN 12.1 g/dL (11.0-16.0); MEAN CELL VOLUME 86.7 fL (81.0-99.0); MEAN CORPUSCULAR HEMOGLOBIN 29.8 pg (27.0-31.0); MEAN CORPUSCULAR HGB CONC 34.4 g/dL (33.0-37.0); MEAN PLATELET VOLUME 6.7 fL (7.2-11.7); RBC 4.05 Mil/uL (3.80-5.20); RED CELL DISTRIBUTION WIDTH 13.9 % (11.5-14.5); WHITE BLOOD COUNT 5.1 K/uL (4.8-10.8)
[2018-08-21] MEDS: Aluminum Hydroxide/Magnesium Hydroxide Susp (30 mL) PO SCH ×4 (08:42→21:33)
[2018-08-21] MEDS: Enoxaparin 30 mg Syringe SC SCH (09:28)
[2018-08-21] MEDS: POLYETHYLENE GLYCOL 3350 17 GM/Dose PACKET PO SCH ×2 (09:28→18:41)
--- NOTE | 2018-08-21 11:06 | CP.PCM.PN ---
Subjective - Date & Time of Evaluation Date of Evaluation: 08/21/18 Time of Evaluation: 11:06 - Subjective Subjective: Discharge summary dictated #[id number] Objective - Vital Signs/Intake and Output Vital Signs (last 24 hours): Temp Pulse Resp BP Pulse Ox 98 F 87 20 124/78 97 08/21/18 07:38 08/21/18 07:38 08/21/18 07:38 08/21/18 09:30 08/21/18 07:38 Intake and Output: 08/21/18 08/21/18 06:59 18:59 Intake Total 600 Balance 600 - Medications Medications: Current Medications Al Hydrox/Mg Hydrox/Simethicone (Maalox 30 Ml) 30 ml PO ACHS ON LICENSE OF [facility] Last Admin: 08/21/18 08:42 Dose: Not Given Chlorpromazine (Thorazine) 50 mg IM Q4H PRN Last Admin: 08/21/18 09:37 Dose: 50 mg Clonidine HCl (Catapres) 0.1 mg PO BID ON LICENSE OF [facility] Last Admin: 08/21/18 09:27 Dose: 0.1 mg Dicyclomine HCl (Bentyl) 10 mg PO Q6 PRN PRN Reason: Muscle spasm Last Admin: 08/20/18 17:41 Dose: 10 mg Enoxaparin Sodium (Lovenox) 30 mg SC DAILY ON LICENSE OF [facility] Last Admin: 08/21/18 09:28 Dose: 30 mg Erythromycin (Erythromycin) 250 mg PO TID ON LICENSE OF [facility]; Protocol Last Admin: 08/21/18 09:27 Dose: 250 mg Gabapentin (Neurontin) 300 mg PO TID ON LICENSE OF [facility] Last Admin: 08/21/18 09:28 Dose: 300 mg Hydroxyzine HCl (Atarax) 25 mg PO Q6H ON LICENSE OF [facility] Last Admin: 08/21/18 09:40 Dose: 25 mg Dextrose/Lactated Ringer's (Dextrose 5%/Lactated Ringer's) 1,000 mls @ 100 mls/hr IV .Q10H ON LICENSE OF [facility] Last Admin: 08/21/18 06:51 Dose: Not Given Lactulose (Enulose) 20 gm PO HS PRN PRN Reason: Constipation Lorazepam (Ativan) 2 mg IVP Q4H PRN PRN Reason: Anxiety Last Admin: 08/21/18 10:58 Dose: 2 mg Methadone HCl (Methadone) 20 mg PO Q24H ON LICENSE OF [facility]; Taper Stop: 08/24/18 11:44 Last Admin: 08/20/18 11:54 Dose: 20 mg Naloxone HCl (Narcan) 0.4 mg IVP Q1H PRN PRN Reason: Other Ondansetron HCl (Zofran Tab) 4 mg PO Q8 PRN PRN Reason: Nausea/Vomiting Ondansetron HCl (Zofran Inj) 4 mg IVP Q6 PRN PRN Reason: Nausea/Vomiting Polyethylene Glycol (Miralax) 17 gm PO BID ON LICENSE OF [facility] Last Admin: 08/21/18 09:28 Dose: 17 gm Trazodone HCl (Desyrel) 50 mg PO [facility] Last Admin: 08/20/18 21:20 Dose: 50 mg - Labs Labs: 08/21/18 08:30 08/20/18 06:24
[2018-08-21] MEDS ORDERED: Magnesium Citrate Oral SOL (300 ml) PO STA (11:57)
--- NOTE | 2018-08-21 12:00 | CP.PCM.PCO ---
Physician Communication Note - Physician Communication Note Physician Communication Note: see above
--- NOTE | 2018-08-21 12:51 | CP.PCM.PCO ---
Physician Communication Note - Physician Communication Note Physician Communication Note: see above
--- NOTE | 2018-08-21 20:29 | PCM.BM ---
Treatment Plan Problems - Problems identified on initial assessmt feelings of worthlessness Date Initiated: 08/21/18 Time Initiated: 20:28 Assessment reference: NA Status: Active hopelessness/helplessness Date Initiated: 08/21/18 Time Initiated: 20:30 Assessment reference: NA Status: Active suicidal ideation Date Initiated: 08/21/18 Time Initiated: 20:31 Assessment reference: NA Status: Active Treatment assets and liabiliti Patient Assests: cooperative, ADL independent, negotiates basic needs, cognitively intact Patient Liabilities: substance abuse, medical problems - Milieu Protocol Maintain good personal hygiene: daily Encourage regular showers, daily Remind patient to perform daily oral care, daily Assist patient to perform ADL's, every shift Encourage regular showers, every shift Remind patient to perform daily oral care, every shift Assist patient to perform ADL's Conduct patient checks and document Observation sheet: Q15 minutes Maintain personal safety: every shift Educate patient to report safety concerns to staff, every shift Monitor environment for contraband/sharps Medication safety: Monitor for expected outcome, potential side effects: every shift, Assess barriers to learning: every shift, Assess readiness for medication education: every shift Milieu Narrative: Bipolar disorder depressed severe without psychotic features Alcohol use disorder severe Opioid use disorder severe Opioid withdrawal Sedated/hypnotic use disorder severe Sedative/hypnotic withdrawal CBT Supportive therapy Psychoeducation Methadone taper for opiate withdrawal Ativan taper for sedated/hypnotic withdrawal Trazodone for insomnia Hydroxyzine for anxiety Neurontin for augmentation Paxil for depression. Patient is on one-to-one. She cannot contract for safety. She has history of multiple overdoses in the past. [facility] will be called for involuntary hospitalization. Discharge/Continuing Care - Treatment Team Participation Patient/Family/SO Statement: Bipolar disorder depressed severe without psychotic features Alcohol use disorder severe Opioid use disorder severe Opioid withdrawal Sedated/hypnotic use disorder severe Sedative/hypnotic withdrawal CBT Supportive therapy Psychoeducation Methadone taper for opiate withdrawal Ativan taper for sedated/hypnotic withdrawal Trazodone for insomnia Hydroxyzine for anxiety Neurontin for augmentation Paxil for depression. Patient is on one-to-one. She cannot contract for safety. She has history of multiple overdoses in the past. [facility] will be called for involuntary hosp italization.
[2018-08-22 07:50] LABS: HEMOGLOBIN 11.9 g/dL (11.0-16.0); MEAN CORPUSCULAR HEMOGLOBIN 30.2 pg (27.0-31.0); MEAN CORPUSCULAR HGB CONC 34.7 g/dL (33.0-37.0); MEAN PLATELET VOLUME 6.3 fL (7.2-11.7); RBC 3.95 Mil/uL (3.80-5.20); WHITE BLOOD COUNT 4.1 K/uL (4.8-10.8)
[2018-08-22] MEDS: Aluminum Hydroxide/Magnesium Hydroxide Susp (30 mL) PO SCH ×4 (08:29→21:39)
[2018-08-22] MEDS: POLYETHYLENE GLYCOL 3350 17 GM/Dose PACKET PO SCH ×2 (09:50→17:01)
[2018-08-22] MEDS: Enoxaparin 30 mg Syringe SC SCH (10:04)
[2018-08-22] MEDS: Dextrose 5%/Lactated Ringer's 1,000 ML IV SCH ×2 (11:09→16:36)
--- NOTE | 2018-08-22 11:40 | DS ---
DATE OF TRANSFER TO PSYCHIATRIC FLOOR: 08/21/2018. DISCHARGE DIAGNOSES: Borderline personality disorder, mood disorder, suicidal ideation, severe depression, polysubstance abuse, alcohol abuse, irritable bowel syndrome, gastroparesis, seizures secondary to drug abuse. HISTORY OF PRESENT ILLNESS: Ms. Millan is a 27-year-old female with past medical history of irritable bowel syndrome, gastroparesis, seizures, IVDA opiate-induced seizures, neuropathy with multiple admissions to the psych floor, recent admission was 2 weeks ago, and after discharge from [facility] was evaluated at [facility] and discharged, returned to the [facility] for suicidal ideation and possible polysubstance drug overdose, and the patient was admitted to the ICU. Today, the patient is feeling much better. Denied any headache or dizziness. Denies any chest pain, shortness of breath, or wheezing. Denies any nausea, vomiting, abdominal pain, diarrhea, or constipation. Denies any urinary complaints. Denies any leg pains or leg cramps. Denies any other neurologic symptoms. All other systems reviewed and were found to be negative. PHYSICAL EXAMINATION: GENERAL: A young female, lying in bed, in no acute distress. VITAL SIGNS: Blood pressure 124/78, pulse 87, respirations 20, temperature 98 degrees Fahrenheit, O2 sat is 97% on room air. HEENT: Pupils equal, round, reacting to light and accommodation. Extraocular muscles intact. No icterus. No pallor. No oral thrush. No pharyngeal congestion. NECK: Supple. No JVD. No thyromegaly. CHEST: Moving equally bilaterally on respiration. LUNGS: Bilateral vesicular breath sounds. No wheezing. No rhonchi. CARDIOVASCULAR SYSTEM: S1 and S2 present and regular. ABDOMEN: Soft, nontender. Bowel sounds present. No guarding. No rigidity. No rebound tenderness noted. CENTRAL NERVOUS SYSTEM: Alert, awake, oriented x3. No focal deficits noted. EXTREMITIES: No edema. Palpable peripheral pulses. LABORATORY DATA: Labs done from this morning: WBC 5.1, hemoglobin 12.1, hematocrit 35.1, platelets 321. Sodium 139, potassium 4.2, chloride 105, bicarb 26, BUN 5, creatinine 0.7, glucose 127. Abdomen and pelvis CT negative. Chest x-ray negative. Head CT negative. CT angiogram negative. HOSPITAL COURSE: The patient was admitted to the ICU. The patient was monitored overnight. As the patient was stabilized, the patient was transferred to the floor. The patient was medically cleared to be transferred to psych floor for further psychiatric management and evaluation. Initially, the patient was screened by [facility] screener for voluntary to be admitted to the psychiatric floor, but she agreed to sign herself into [facility] Psychiatric Unit, and the patient is accepted to [facility], and the patient is otherwise medically stable and cleared for transfer to [facility]. Further psychiatric management to be continued as per Psychiatry. CONDITION UPON TRANSFER TO PSYCHIATRIC FLOOR: The patient is alert, awake, oriented x3 at the time of transfer. Please refer to transfer sheet for medication list. Zenia Coleman MD
--- NOTE | 2018-08-22 19:53 | PCM.PYCHPN ---
Psychiatric Progress Note - Psychiatric Progress Note Patient seen today, length of contact: 15 minutes Patient Chief Complaint: I am feeling anxious, can get Ativan. Problems Identified/Issues Discussed: Patient seen, chart reviewed, case discussed with the staff. Issues related to illness and treatment were discussed with the patient and staff. Reported compliant with treatment with no adverse effects. Tolerating treatment very well. Patient reported not feeling better. Patient reported feeling anxious and was requesting for Ativan. Education provided regarding medication as patient has other medication for anxiety including Atarax and gabapentin. Later patient had a list of medication which she was requesting including Lyrica 200 mg twice a day for fibromyalgia. Patient reported that she was taking Lyrica before admitting to the hospital. Patient was also asking for erythromycin for her gastroparesis. Erythromycin is already there and patient is getting erythromycin. Patient was also requesting for Seroquel 300 mg twice a day. It appeared that patient has drug-seeking behavior. Discussed with patient about the medications. Mood reported as anxious. Affect inappropriate, appeared calm. Patient needs more time for stabilization. Aftercare discussed with the patient. Denied any delusions, auditory or visual hallucinations, no suicidal ideations or homicidal ideations at the time of evaluation. Medical Problems: Fibromyalgia Gastroparesis Diagnostic Results: Reviewed DSM 5 Symptoms Update: Some improvement with treatment. Medication Change: No Medical Record Reviewed: Yes Mental Status Examination - Cognitive Function Orientation: Person, Place, Situation, Time Memory: Intact Attention: WNL Concentration: WNL Association: [facility] Fund of Knowledge: [facility] Decription of patient's judgement and insights: Fair - Mood Mood: Anxious - Affect Affect: Other (Appears calm) - Speech Speech: Appropriate - Formal Thought Process Formal Thought Process: No Impairment Psychotic Thoughts and Behaviors: None - Suicidal Ideation Suicidal Ideation: No - Homicidal Ideation Homicidal Ideation: No Goal/Treatment Plan - Goal/Treatment Plan Need for Continued Stay: Remain at risks for inpatient hospitalization, Discharge may exacerbated symptoms, Severe functional impairment Progress Toward Problem(s) and Goals/Treatment Plan: Patient education. Supportive therapy. CBT for relapse prevention. Continue treatment as before. We will start Lyrica 200 mg twice a day. Continue rest of the treatment as before. Aftercare discussed with the patient. Estimated Date of D/C: 08/27/18 - Smoking Cessation Smoking Cessation Initiated: No
[2018-08-23] MEDS: Aluminum Hydroxide/Magnesium Hydroxide Susp (30 mL) PO SCH ×2 (07:35→11:36)
[2018-08-23 08:43] LABS: MEAN CELL VOLUME 87.4 fL (81.0-99.0); MEAN CORPUSCULAR HEMOGLOBIN 30.3 pg (27.0-31.0); MEAN CORPUSCULAR HGB CONC 34.7 g/dL (33.0-37.0); MEAN PLATELET VOLUME 6.5 fL (7.2-11.7); RBC 4.71 Mil/uL (3.80-5.20); RED CELL DISTRIBUTION WIDTH 13.9 % (11.5-14.5); WHITE BLOOD COUNT 4.7 K/uL (4.8-10.8)
[2018-08-23 08:52] LABS: HEMOGLOBIN 14.3 g/dL (11.0-16.0)
[2018-08-23] MEDS: Enoxaparin 30 mg Syringe SC SCH (09:44)
[2018-08-23] MEDS: POLYETHYLENE GLYCOL 3350 17 GM/Dose PACKET PO SCH (09:48)
[2018-08-23] MEDS ORDERED: Aluminum Hydroxide/Magnesium Hydroxide Susp (30 mL) PO PRN (11:59)
--- NOTE | 2018-08-23 12:08 | PCM.PYCHPN ---
Psychiatric Progress Note - Psychiatric Progress Note Patient seen today, length of contact: 29 min Patient Chief Complaint: "I am very anxious" Problems Identified/Issues Discussed: The pt is seen again, chart reviewed, and case is discussed with the team. The pt denies any side-effects from meds. Attends activities and groups, brief individual therapy provided Not ready for discharge due to ongoing symptoms and high relapse risk. After care discussed again. She is OK with going back to DBT program at [facility] but she also wants addiction tx. She will be [place] [facility] [place] [facility] Of note, the pt was on many unnecessary meds and they are cleaned up. SOme of them are likely due to her manipulation with regards to her eating d/o, ie miramax, dulcolax, even erithromycin. prn meds adjusted Her pharmacy is called and it seems she got low dose of (3-7 days) lyrica. 75 mg bid resumed. Lexapro and seroquel resumed too Medication Change: Yes ( hpi) Medical Record Reviewed: Yes Mental Status Examination - Cognitive Function Orientation: Person, Place, Situation, Time Memory: Intact Attention: WNL Concentration: Poor Association: WNL Fund of Knowledge: WNL - Mood Mood: Depressed, Anxious - Affect Affect: Constricted - Speech Speech: Appropriate - Formal Thought Process Formal Thought Process: No Impairment - Suicidal Ideation Suicidal Ideation: No - Homicidal Ideation Homicidal Ideation: No Goal/Treatment Plan - Goal/Treatment Plan Need for Continued Stay: Remain at risks for inpatient hospitalization, Severe depression anxiety, Discharge may exacerbated symptoms, Severe functional impairment Progress Toward Problem(s) and Goals/Treatment Plan: Continue meds as outlined in HPI Indiv and group tx Support and psyhoed Limit setting MOnitor bingeing and purging Refer to DBT and IOP Estimated Date of D/C: 08/27/18
--- NOTE | 2018-08-23 14:30 | CARD ---
APPROVED REPORT Date of service: 08/19/2018 EKG Measurement Heart [id number] <Conclusion> Sinus rhythm with short MT Otherwise normal ECG
--- NOTE | 2018-08-24 06:23 | PCM.BM ---
Treatment Plan Problems - Problems identified on initial assessmt feelings of worthlessness Date Initiated: 08/21/18 Time Initiated: 20: Date resolved: 08/21/18 Assessment reference: NA Status: Active hopelessness/helplessness Date Initiated: 08/21/18 Time Initiated: 20:30 Date resolved: 08/21/18 Assessment reference: NA Status: Active suicidal ideation Date Initiated: 08/21/18 Time Initiated: 20:31 Assessment reference: NA Status: Active Treatment assets and liabiliti Patient Assests: cooperative, ADL independent, negotiates basic needs, cognitively intact Patient Liabilities: substance abuse, medical problems - Milieu Protocol Maintain good personal hygiene: daily Encourage regular showers, daily Remind patient to perform daily oral care, daily Assist patient to perform ADL's, every shift Encourage regular showers, every shift Remind patient to perform daily oral care, every shift Assist patient to perform ADL's Conduct patient checks and document Observation sheet: Q15 minutes Maintain personal safety: every shift Educate patient to report safety concerns to staff, every shift Monitor environment for contraband/sharps Medication safety: Monitor for expected outcome, potential side effects: every shift, Assess barriers to learning: every shift, Assess readiness for medication education: every shift Milieu Narrative: Continue meds as outlined in HPI Indiv and group tx Support and psyhoed Limit setting MOnitor bingeing and purging Refer to DBT and IOP Family Contact Family involvement: Family/SO is involved Family contact: Patient declines to allow family contact at present - Goals for Treatment Patient goals for treatment: "I need the right medication." Discharge/Continuing Care - Education Needs Education Needs: Patient Medication, Patient Coping Skills - Discharge Discharge Criteria: Tolerates medication w/o severe side effects, Reduction of target symptoms Discharge to:: Home - Treatment Team Participation Patient/Family/SO Statement: Continue meds as outlined in HPI Indiv and group tx Support and psyhoed Limit setting MOnitor bingeing and purging Refer to DBT and IOP Discussed with Family/SO: No Was Patient/Family/SO present at Treatment Team Meeting: Yes
[2018-08-24 07:30] LABS: HEMOGLOBIN 14.5 g/dL (11.0-16.0); MEAN CELL VOLUME 87.4 fL (81.0-99.0); MEAN CORPUSCULAR HEMOGLOBIN 29.9 pg (27.0-31.0); MEAN CORPUSCULAR HGB CONC 34.1 g/dL (33.0-37.0); MEAN PLATELET VOLUME 6.5 fL (7.2-11.7); RBC 4.87 Mil/uL (3.80-5.20); WHITE BLOOD COUNT 4.9 K/uL (4.8-10.8)
[2018-08-24] MEDS: POLYETHYLENE GLYCOL 3350 17 GM/Dose PACKET PO PRN (10:08)
--- NOTE | 2018-08-24 13:50 | PCM.PSYCH ---
Initial Psychiatric Evaluation - Initial Psychiatric Evaluation Type of Admission: Voluntary Legal Status: Capacity Chief Complaint (in patient's own words): "I am in pain" History of Present Illness and Precipitating Events: The pt is seen, chart reviewed, case discussed with staff. The pt is compliant with medications and reports no side-effects. Symptoms are improving but needs more time to stabilize. Pt attends groups and activities. Support given, psycho-education provided. After care discussed. Current Medications: Active Medications Generic Name Dose Route Start Last Admin Trade Name Freq PRN Reason Stop Dose Admin Al Hydrox/Mg Hydrox/Simethicone 30 ml 08/23/18 11:59 Maalox 30 Ml PO ACHS PRN Nausea/Vomiting Baclofen 10 mg 08/24/18 14:00 Lioresal PO DAILY STACY Benztropine Mesylate 1 mg 08/21/18 21:47 08/24/18 12:03 Cogentin PO 1 mg Q6 PRN Administration Clonidine HCl 0.1 mg 08/23/18 12:01 Catapres PO Q6H PRN BP>150/100 or P>100 Dicyclomine HCl 10 mg 08/20/18 10:06 08/23/18 17:27 Bentyl PO 10 mg Q6 PRN Administration Muscle spasm Escitalopram Oxalate 10 mg 08/23/18 12:00 08/24/18 09:55 Lexapro PO 10 mg DAILY STACY Administration Fluphenazine HCl 5 mg 08/23/18 11:50 08/24/18 12:03 Prolixin PO 5 mg Q6H PRN Administration Agitation Gabapentin 400 mg 08/24/18 14:00 08/24/18 13:45 Neurontin PO 400 mg TID STACY Administration Hydroxyzine HCl 50 mg 08/21/18 17:00 08/24/18 10:00 Atarax PO 50 mg Q6H STACY Administration Lorazepam 1 mg 08/21/18 14:00 08/24/18 03:14 Ativan PO 08/24/18 13:59 1 mg Q24H STACY Administration Taper Ondansetron HCl 4 mg 08/20/18 10:06 Zofran Tab PO Q8 PRN Nausea/Vomiting Polyethylene Glycol 17 gm 08/23/18 12:01 08/24/18 10:08 Miralax PO 17 gm BID PRN Administration Constipation Prazosin HCl 2 mg 08/24/18 22:00 Minipress PO HS STACY Pregabalin 75 mg 08/23/18 18:00 08/24/18 09:55 Lyrica PO 75 mg BID STACY Administration Quetiapine Fumarate 100 mg 08/23/18 22:00 08/23/18 22:09 Seroquel PO Not Given HS STACY Quetiapine Fumarate 50 mg 08/24/18 14:00 08/24/18 13:45 Seroquel PO 50 mg TID STACY Administration Past Psychiatric History - Past Psychiatric History Previous Treatment History: Inpatient Explanation of prior treatment: Fibromyalgia Gastroparesis Pertinent Medical Hx (Current Medical&Sleep Prob, Allergies): Allergies Allergy/AdvReac Type Severity Reaction Status Date / Time latex Allergy RASH Verified 08/08/18 17:01 metoclopramide [From Reglan] Allergy RASH Verified 08/08/18 17:01 seizure meds Allergy RASH Uncoded 06/28/18 17:02 Cyclobenzaprine [Flexeril] 5 mg PO BID PRN 08/08/18 Promethazine [Phenergan] 25 mg PO BID PRN 08/08/18 QUEtiapine [SEROquel] 300 mg PO HS 08/08/18 hydrOXYzine HCl [Atarax] 50 mg PO TID PRN 08/08/18 DSM 5 DX - Recommended/Plan of Treatment Treatment Recommendations and Plan of Treatment: Continue meds as outlined in HPI Indiv and group tx Support and psyhoed Limit setting MOnitor bingeing and purging Refer to DBT and IOP
--- NOTE | 2018-08-24 14:36 | PCM.PYCHPN ---
Psychiatric Progress Note - Psychiatric Progress Note Patient seen today, length of contact: 32 min Patient Chief Complaint: "I feel in pain" Problems Identified/Issues Discussed: The pt is seen, chart reviewed She is very landry again She rescinded her 48 hour note but then put in and rescinded once more (? ) She wouldbe screened again as we heard from her BF Imtiaz (she signed a consent) taht she had told him she would kill herself "this time" She denied it to the junior underwriter saying she was more angry then. However, she is still angry, landry, anxious, "in pain" and demanding more and more meds. She is upset that some of them were stopped but understood when explained...for now. She wouldn't consent for her mother to come saying it won't help as she is disregarded by her. Public Relations Manager validated her emotions and discussed solutions and coping skills Referral is made for rehab, however it is very unlikely she will tolerate rehab more than a few days. BF also noted that the pt signs out AMA from everywhere and doctor-shops for pills and lately got into drugs. Pt c/o body pain and some withdrawal. Takes ativan, methadone is finished but she doesn;t seem to have opioid wdw Baclofen added for fibromayalgia as we may have to stop lyrica (not allowed in rehabs) July is increased Prazosin added for sleep (has pTSD too) Seroquel increase bc of mood swings. She says she used all others with poor result ie [place], depakote Medication Change: Yes (see HPI again) Medical Record Reviewed: Yes Mental Status Examination - Cognitive Function Orientation: Person, Place, Situation, Time Memory: Intact Attention: WNL Concentration: Poor Association: WNL Fund of Knowledge: WNL - Mood Mood: Depressed, Anxious - Affect Affect: Constricted - Speech Speech: Appropriate - Formal Thought Process Formal Thought Process: No Impairment - Suicidal Ideation Suicidal Ideation: Yes Plan: No plans, intentions. BF reports SI, not her, but she may be hiding. - Homicidal Ideation Homicidal Ideation: No Goal/Treatment Plan - Goal/Treatment Plan Need for Continued Stay: Remain at risks for inpatient hospitalization, Severe depression anxiety, Discharge may exacerbated symptoms, Severe functional impairment Progress Toward Problem(s) and Goals/Treatment Plan: Continue meds (see changes) Support, psychoed DBT, CBT techniques Meditation, relaxation Groups Limit setting She CANNOT leave without junior underwriter's knowledge. We may have to screen her if she attempts to leave AMA Estimated Date of D/C: 08/27/18
[2018-08-25] MEDS: POLYETHYLENE GLYCOL 3350 17 GM/Dose PACKET PO PRN (09:02)
--- NOTE | 2018-08-25 13:00 | PCM.PYCHPN ---
Psychiatric Progress Note - Psychiatric Progress Note Patient seen today, length of contact: 24 min Patient Chief Complaint: "I feel better" Problems Identified/Issues Discussed: The pt is seen, chart reviewed and case discussed She is in good mood this morning, and commented about that incl her mo saying the same thing to her Still anxious, depressed, landry at times and [id number] , even cogentin (?) but less so No suicidal thoughts How to manage mood swings discussed within DBT framework Medication Change: Yes (meds adjusted) Medical Record Reviewed: Yes Mental Status Examination - Cognitive Function Orientation: Person, Place, Situation, Time Memory: Intact Attention: WNL Concentration: Poor Association: WNL Fund of Knowledge: WNL - Mood Mood: Depressed, Anxious - Affect Affect: Constricted - Speech Speech: Appropriate - Formal Thought Process Formal Thought Process: No Impairment - Suicidal Ideation Suicidal Ideation: Yes - Homicidal Ideation Homicidal Ideation: No Goal/Treatment Plan - Goal/Treatment Plan Need for Continued Stay: Remain at risks for inpatient hospitalization, Severe depression anxiety, Discharge may exacerbated symptoms, Severe functional impairment Progress Toward Problem(s) and Goals/Treatment Plan: Continue meds (see changes) Support, psychoed DBT, CBT techniques Meditation, relaxation Groups Limit setting She CANNOT leave without expert medical writer's knowledge. We may have to screen her if she attempts to leave AMA Estimated Date of D/C: 08/27/18
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
[2018-08-25 21:16] LABS: BASO % 0.1 % (0.0-2.0); HEMOGLOBIN 13.9 g/dL (11.0-16.0); LYMPH # 1.2 K/uL (1.0-4.3); LYMPH % 17.1 % (20.0-40.0); MEAN CELL VOLUME 86.8 fL (81.0-99.0); MEAN CORPUSCULAR HEMOGLOBIN 29.4 pg (27.0-31.0); MEAN CORPUSCULAR HGB CONC 33.8 g/dL (33.0-37.0); MEAN PLATELET VOLUME 6.7 fL (7.2-11.7); MONO # 0.5 K/uL (0.0-0.8); MONO % 7.1 % (0.0-10.0); NEUT # 5.4 K/uL (1.8-7.0); NEUT % 75.7 % (50.0-75.0); NRBC % 0.1 % (0.0-2.0); RBC 4.73 Mil/uL (3.80-5.20); RED CELL DISTRIBUTION WIDTH 14.1 % (11.5-14.5); WHITE BLOOD COUNT 7.1 K/uL (4.8-10.8)
[2018-08-25 22:04] LABS: ALB/GLOB RATIO 1.3 (1.0-2.1); ALT/SGPT 73 U/L (9-52); AST/SGOT 91 U/L (14-36); BLOOD UREA NITROGEN 15 mg/dL (7-17); CALCIUM 9.5 mg/dl (8.6-10.4); GFR NON-AFRICAN AMERICAN > 60
[2018-08-25] MEDS: Sodium Chloride 0.9% 1,000 ML IV SCH (22:43)
[2018-08-25 23:15] LABS: OPIATES, UR NEGATIVE (NEGATIVE); PHENCYCLIDINE, UR NEGATIVE (NEGATIVE)
[2018-08-25 23:18] LABS: BARBITURATES, UR POSITIVE (NEGATIVE); BENZODIAZEPINES, UR POSITIVE (NEGATIVE)
[2018-08-25] MEDS ORDERED: Potassium Chloride 20 mEq ER Tab PO ONE (23:46)
[2018-08-26] MEDS ORDERED: Gadodiamide 287 MG/ML VIAL (15ML) IV ONE (03:04)
[2018-08-26 08:19] LABS: BASO % 0.1 % (0.0-2.0); HEMOGLOBIN 14.1 g/dL (11.0-16.0); LYMPH # 0.9 K/uL (1.0-4.3); LYMPH % 20.2 % (20.0-40.0); MEAN CELL VOLUME 86.3 fL (81.0-99.0); MEAN CORPUSCULAR HEMOGLOBIN 29.9 pg (27.0-31.0); MEAN CORPUSCULAR HGB CONC 34.6 g/dL (33.0-37.0); MEAN PLATELET VOLUME 6.8 fL (7.2-11.7); MONO # 0.3 K/uL (0.0-0.8); MONO % 7.6 % (0.0-10.0); NEUT # 3.2 K/uL (1.8-7.0); NEUT % 72.1 % (50.0-75.0); RBC 4.7 Mil/uL (3.80-5.20); RED CELL DISTRIBUTION WIDTH 13.9 % (11.5-14.5); WHITE BLOOD COUNT 4.4 K/uL (4.8-10.8)
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
[2018-08-26 09:16] LABS: ALB/GLOB RATIO 1.2 (1.0-2.1); ALBUMIN 3.8 g/dL (3.5-5.0); ALT/SGPT 59 U/L (9-52); AST/SGOT 75 U/L (14-36); BLOOD UREA NITROGEN 12 mg/dL (7-17); CALCIUM 9.4 mg/dl (8.6-10.4); GFR NON-AFRICAN AMERICAN > 60
[2018-08-26] MEDS: POLYETHYLENE GLYCOL 3350 17 GM/Dose PACKET PO PRN (10:09)
--- NOTE | 2018-08-26 10:26 | CP.PCM.CON ---
<Brock Weber - Last Filed: 08/26/18 15:20> History of Present Illness - History of Present Illness History of Present Illness: PGY-1 Neurology consult note for Dr Manjarrez Patient is 27 year old female with pmhx of multisubstance abuse disorder, including opioid, IV drugs, alcohol and benzo use, borderline personality disorder, gastroparesis and IBS, consult for neurology placed for seizure disorder evaluation. As per medical team, patient had a witnessed seizure last night at 10:15 pm at the psych unit where she has been staying since admission to hospital last week for drug overdose. As per nursing staff, patient was at the cafeteria area and had convulsions for 1 minute. upon COMPENSATION CONSULTING MANAGER arrival, patient was awake but disoriented. Patient was given IV Keppra 500mg and was placed on ativan as needed, and transferred to telemetry. Patient states does not remember any of the events that happened last night. states last thing she remembers was seeing her fiancee around 8pm. Admits to history of seizure since the age of 16, reports last seizure happened about a year ago. Patient has been on different seizure medications incluing Vimpat, Topomax, depakote and Keppra, but patient said she stopped these medications since 8 months ago due to side effects mostly involving patient become aggresive and not active like herself. Patient is currently not taking seizure medications, and does not follow with neurologist. Patient admits to some tingling and pain on right calf and bilateral palmar aspect of hands. Admits to some dizziness at time of encounter. Patient denies aura, headaches, weakness, vision or hearing changes, nausea, vomiting. Pmhx/Shx: as stated above All: latex, reglan, haldol Meds: Baclofen, flexeril, atarax, lyricia, risperidone, trihexyphenidyl Fhx: denies Soc hx: 1/2 pack a day since her 20s, 2 pints of liquor, heroine use about 10 bags daily, pt is a student, lives with [facility] Review of Systems - Review of Systems All systems: reviewed and no additional remarkable complaints except Review of Systems: as stated in HPI Past Patient History - Tetanus Immunizations Tetanus Immunization: Unknown - Past Medical History & Family History Past Medical History?: Yes - Past Social History Smoking Status: Heavy Smoker > 10 Cigarettes Daily - CARDIAC Hx Cardiac Disorders: No Hx Hypertension: No - PULMONARY Hx Tuberculosis: No - NEUROLOGICAL Hx Seizures: Yes - HEENT Hx HEENT Problems: No - RENAL Hx Chronic Kidney Disease: No - ENDOCRINE/METABOLIC Hx Endocrine Disorders: No - HEMATOLOGICAL/ONCOLOGICAL Hx Cancer: No Hx Human Immunodeficiency Virus (HIV): No - INTEGUMENTARY Hx Dermatological Problems: No - MUSCULOSKELETAL/RHEUMATOLOGICAL Hx Falls: No - GASTROINTESTINAL Hx Irritable Bowel: Yes Other/Comment: gastropharesis - GENITOURINARY/GYNECOLOGICAL Hx Sexually Transmitted Disorders: No - PSYCHIATRIC Hx Substance Use: Yes - SURGICAL HISTORY Hx Surgeries: No - ANESTHESIA Hx Anesthesia: No Hx Anesthesia Reactions: No Hx Malignant Hyperthermia: No Has any member of the family had a problem w/ anesthesia?: No Meds Allergies/Adverse Reactions: Allergies Allergy/AdvReac Type Severity Reaction Status Date / Time latex Allergy RASH Verified 08/08/18 17:01 metoclopramide [From Reglan] Allergy RASH Verified 08/08/18 17:01 seizure meds Allergy RASH Uncoded 06/28/18 17:02 - Medications Medications: Current Medications Al Hydrox/Mg Hydrox/Simethicone (Maalox 30 Ml) 30 ml PO ACHS PRN PRN Reason: Nausea/Vomiting Baclofen (Lioresal) 10 mg PO DAILY [facility] Last Admin: 08/26/18 10:08 Dose: 10 mg Benztropine Mesylate (Cogentin) 1 mg PO Q6 PRN Last Admin: 08/26/18 10:08 Dose: 1 mg Clonidine HCl (Catapres) 0.1 mg PO Q6H PRN PRN Reason: BP>150/100 or P>100 Dicyclomine HCl (Bentyl) 10 mg PO Q6 PRN PRN Reason: Muscle spasm Last Admin: 08/23/18 17:27 Dose: 10 mg Escitalopram Oxalate (Lexapro) 20 mg PO DAILY [facility] Last Admin: 08/26/18 10:07 Dose: 20 mg Fluphenazine HCl (Prolixin) 5 mg PO Q6H PRN PRN Reason: Agitation Last Admin: 08/24/18 12:03 Dose: 5 mg Gabapentin (Neurontin) 600 mg PO TID [facility] Last Admin: 08/26/18 10:07 Dose: 600 mg Hydroxyzine HCl (Atarax) 50 mg PO Q6H [facility] Last Admin: 08/26/18 05:48 Dose: Not Given Sodium Chloride (Sodium Chloride 0.9%) 1,000 mls @ 100 mls/hr IV .Q10H [facility] Last Admin: 08/25/18 22:43 Dose: 100 mls/hr Potassium Chloride (Potassium Chloride 10 Meq/100 Ml) 10 meq in 100 mls @ 100 mls/hr IVPB ONCE ONE Stop: 08/26/18 10:53 Lamotrigine (Lamictal) 50 mg PO Q12H [facility] Lorazepam (Ativan) 1 mg IVP Q4H PRN PRN Reason: Anxiety Last Admin: 08/26/18 06:43 Dose: 1 mg Ondansetron HCl (Zofran Tab) 4 mg PO Q8 PRN PRN Reason: Nausea/Vomiting Polyethylene Glycol (Miralax) 17 gm PO BID PRN PRN Reason: Constipation Last Admin: 08/26/18 10:09 Dose: 17 gm Prazosin HCl (Minipress) 2 mg PO [facility] Last Admin: 08/25/18 22:49 Dose: 2 mg Pregabalin (Lyrica) 75 mg PO BID [facility] Last Admin: 08/26/18 10:07 Dose: 75 mg Quetiapine Fumarate (Seroquel) 150 mg PO [facility] Last Admin: 08/25/18 22:44 Dose: 150 mg Ziprasidone (Geodon Inj) 20 mg IM Q12H PRN PRN Reason: severe agitation Physical Exam - Constitutional Appears: Non-toxic, No Acute Distress - Head Exam Head Exam: ATRAUMATIC, NORMAL INSPECTION, NORMOCEPHALIC - Eye Exam Eye Exam: EOMI, Normal appearance Pupil Exam: Mydriatic, NORMAL ACCOMODATION - ENT Exam ENT Exam: Mucous Membranes Moist, Normal Exam - Respiratory Exam Respiratory Exam: Clear to Auscultation Bilateral, NORMAL BREATHING PATTERN - Cardiovascular Exam Cardiovascular Exam: REGULAR RHYTHM - Extremities Exam Extremities exam: Positive for: full ROM Additional comments: l - Neurological Exam Neurological exam: Alert, CN II-XII Intact, Normal Gait, Oriented x3, Reflexes Normal - Expanded Neurological Exam Expanded Patient oriented to: person, place, time Speech: Fluid Speech Cranial nerves: EOM's Intact: Normal, Facial Palsey w/Forehead Movement: Normal, Facial Palsey w/o Forehead Movement: Normal, Facial Sensation: Normal, Ny stagmus: Normal, Tongue Deviation: Normal Cerebellar Function: Finger to Nose: Normal, Heel to Mullen: Normal, Romberg: Normal Upper motor neuron: Pronator Drift: Normal Sensory exam: Lower Extremity Light Touch: Normal, Upper Extremity Light Touch: Normal Neuro motor strength exam: Left Upper Extremity: 5, Right Upper Extremity: 5, Left Lower Extremity: 5, Right Lower Extremity: 5 DTR: Patellar Left: 2+, Patellar Right: 2+ Coma Scale Eye Opening: SPONTANEOUS Coma Scale Motor Response: OBEYS COMMANDS Coma Scale Verbal: Oriented Coma Scale Total: 15 - Psychiatric Exam Psychiatric exam: Flat Affect - Skin Additional comments: eft lower ext distal laceration on medial aspect Results - Vital Signs Recent Vital Signs: Last Vital Signs Temp 98.6 F 08/26/18 07:00 Pulse 69 08/26/18 07:31 Resp 20 08/26/18 07:00 BP 107/66 08/26/18 07:00 Pulse Ox 99 08/26/18 07:00 - Labs Result Diagrams: 08/26/18 08:08 08/26/18 08:08 Labs: Laboratory Results - last 24 hr 08/19/18 08/19/18 08/25/18 07:37 07:45 20:19 WBC RBC Hgb Hct MCV MCH MCHC RDW Plt Count MPV Neut % (Auto) Lymph % (Auto) Rosebud % (Auto) Eos % (Auto) Baso % (Auto) Neut # (Auto) Lymph # (Auto) Rosebud # (Auto) Eos # (Auto) Baso # (Auto) Sodium Potassium Chloride Carbon Dioxide Anion Gap BUN Creatinine Est GFR ( Amer) Est GFR (Non-Af Amer) POC Glucose (mg/dL) 112 H Random Glucose Calcium Phosphorus Magnesium Total Bilirubin AST ALT Alkaline Phosphatase Total Protein Albumin Globulin Albumin/Globulin Ratio Urine Opiates Screen Ur Codeine Screen Negative Ur Morphine Screen 1290 H Urine Methadone Screen Ur Barbiturates Screen Ur Phencyclidine Scrn Ur Amphetamines Screen U [id number] Conf Negative U Benzodiazepines Scrn Ur Nordiazepam Confirm Negative Ur Oxazepam Confirm 265 H U Oth Cocaine Metabols U Cannabinoids Screen Ur Drug Screen Comment See note Toxicology Panel see note 08/25/18 08/25/18 08/25/18 21:07 21:07 22:46 WBC 7.1 RBC 4.73 Hgb 13.9 Hct 41.1 MCV 86.8 MCH 29.4 MCHC 33.8 RDW 14.1 Plt Count 295 MPV 6.7 L Neut % (Auto) 75.7 H Lymph % (Auto) 17.1 L Rosebud % (Auto) 7.1 Eos % (Auto) 0.0 Baso % (Auto) 0.1 Neut # (Auto) 5.4 Lymph # (Auto) 1.2 Rosebud # (Auto) 0.5 Eos # (Auto) 0.0 Baso # (Auto) 0.0 Sodium 137 Potassium 3.3 L Chloride 90 L Carbon Dioxide 35 H Anion Gap 15 BUN 15 Creatinine 0.8 Est GFR ( Amer) > 60 Est GFR (Non-Af Amer) > 60 POC Glucose (mg/dL) Random Glucose 104 Calcium 9.5 Phosphorus Magnesium Total Bilirubin 0.4 AST 91 H D ALT 73 H D Alkaline Phosphatase 51 Total Protein 7.1 Albumin 4.0 Globulin 3.1 Albumin/Globulin Ratio 1.3 Urine Opiates Screen Negative Ur Codeine Screen Ur Morphine Screen Urine Methadone Screen Negative Ur Barbiturates Screen Positive H Ur Phencyclidine Scrn Negative Ur Amphetamines Screen Negative U [id number] Conf U Benzodiazepines Scrn Positive Ur Nordiazepam Confirm Ur Oxazepam Confirm U Oth Cocaine Metabols Negative U Cannabinoids Screen Negative Ur Drug Screen Comment Toxicology Panel 08/26/18 08/26/18 08:08 08:08 WBC 4.4 L RBC 4.70 Hgb 14.1 Hct 40.6 MCV 86.3 MCH 29.9 MCHC 34.6 RDW 13.9 Plt Count 315 MPV 6.8 L Neut % (Auto) 72.1 Lymph % (Auto) 20.2 Rosebud % (Auto) 7.6 Eos % (Auto) 0.0 Baso % (Auto) 0.1 Neut # (Auto) 3.2 Lymph # (Auto) 0.9 L Rosebud # (Auto) 0.3 Eos # (Auto) 0.0 Baso # (Auto) 0.0 Sodium 139 Potassium 3.5 L Chloride 100 Carbon Dioxide 33 H Anion Gap 10 BUN 12 Creatinine 0.8 Est GFR ( Amer) > 60 Est GFR (Non-Af Amer) > 60 POC Glucose (mg/dL) Random Glucose 96 Calcium 9.4 Phosphorus 3.4 Magnesium 2.0 Total Bilirubin 0.8 AST 75 H ALT 59 H Alkaline Phosphatase 52 Total Protein 6.8 Albumin 3.8 Globulin 3.0 Albumin/Globulin Ratio 1.2 Urine Opiates Screen Ur Codeine Screen Ur Morphine Screen Urine Methadone Screen Ur Barbiturates Screen Ur Phencyclidine Scrn Ur Amphetamines Screen U [id number] Conf U Benzodiazepines Scrn Ur Nordiazepam Confirm Ur Oxazepam Confirm U Oth Cocaine Metabols U Cannabinoids Screen Ur Drug Screen Comment Toxicology Panel Assessment & Plan - Assessment and Plan (Free Text) Plan: 27 year old female with past medical hx of multisubstance abuse, borderline personality disorder, had witnessed seizure yesterday evening, admits to history of seizure not currently on medication. 1. Bedside EEG 2. no anti-seizure medication recommended at this time 3. If new seizure, will consider continuous video EEG 4. if no significant findings in EEG, Neuro will sign off, reconsult as needed Plan discussed with Dr Vik Weber, PGY-1 - Date & Time Date: 08/26/18 Time: 10:46 <Barbara Manjarrez - Last Filed: 08/30/18 22:04> Results - Vital Signs Recent Vital Signs: Last Vital Signs Temp 98.4 F 08/30/18 06:00 Pulse 84 08/30/18 06:00 Resp 20 08/30/18 06:00 BP 100/66 08/30/18 06:00 Pulse Ox 97 08/30/18 06:00 - Labs Result Diagrams: 08/27/18 07:07 08/27/18 07:07 Labs: Laboratory Results - last 24 hr 08/25/18 10:13 Urine Opiates Screen TEST NOT PERFORMED Urine Methadone Screen TEST NOT PERFORMED Ur Barbiturates Screen Negative Ur Phencyclidine Scrn TEST NOT PERFORMED Ur Amphetamines Screen TEST NOT PERFORMED U Benzodiazepines Scrn Positive H U Oth Cocaine Metabols TEST NOT PERFORMED U Cannabinoids Screen TEST NOT PERFORMED Assessment & Plan - Assessment and Plan (Free Text) Plan: All medical record entries made by the Resident were at my direction and personally dictated by me. I have reviewed the chart and agree that the record accurately reflects my personal performance of the history, physical exam, medical decision making, and the department course for this patient. I have also personally directed, reviewed, and agree with the discharge instructions and disposition. Miss david is a young woman with severe psychiatric issues, and now normal EEG. On the recommendations of psychiatry, she is at risk for being on oral medi cations, for fear that she may overdose. WE will therefore, hold off on medications Dr. manjarrez neurology
[2018-08-26] MEDS: Sodium Chloride 0.9% 1,000 ML IV SCH ×2 (11:36→17:37)
--- NOTE | 2018-08-26 11:47 | PCM.PYCHPN ---
Psychiatric Progress Note - Psychiatric Progress Note Patient seen today, length of contact: 24 min Patient Chief Complaint: "I am ok" Problems Identified/Issues Discussed: The pt is transferred from psych to medicine bc she had a GM seizure. Chart reviewed, case discussed with medical and psych team, pt is seen. She is in a good mood and says "lexapro helps" Denies SI, SP and agrees to follow safety plan, call nurses and contracts for safety She also agreed to return to psych to complete her treatment With regards to seizure she admits to having stopped antiseizure meds on her own years ago She admits to disliking them and hasn't had a seizure in years. Her UDS is positive for barbiturates. She is not on any. Solid Glass Rod Dowel Machine Operator will check false positives or cross reaction. She denies contraband Medication Change: Yes (meds adjusted) Medical Record Reviewed: Yes Mental Status Examination - Cognitive Function Orientation: Person, Place, Situation, Time Memory: Intact Attention: WNL Concentration: Poor Association: WNL Fund of Knowledge: WNL - Mood Mood: Depressed, Anxious - Affect Affect: Constricted - Speech Speech: Appropriate - Formal Thought Process Formal Thought Process: No Impairment - Suicidal Ideation Suicidal Ideation: No - Homicidal Ideation Homicidal Ideation: No Goal/Treatment Plan - Goal/Treatment Plan Need for Continued Stay: Remain at risks for inpatient hospitalization, Severe depression anxiety, Discharge may exacerbated symptoms, Severe functional impairment Progress Toward Problem(s) and Goals/Treatment Plan: Continue meds (see changes) Support, psychoed DBT, CBT techniques Meditation, relaxation Groups Limit setting She CANNOT leave without health science writer's knowledge. We may have to screen her if she attempts to leave AMA. Monitor bingeing - purging bhv Limit ativan use - she abuses it Transfer back to after medical clearance - Call health science writer Estimated Date of D/C: 08/30/18
--- NOTE | 2018-08-26 16:12 | MRI ---
Date of service: 08/26/2018 PROCEDURE: MRI BRAIN WITH AND WITHOUT CONTRAST HISTORY: seizures COMPARISON: CT head without contrast from 08/20/2018. TECHNIQUE: Multiplanar, multisequence MR images of the brain were obtained with and without intravenous contrast enhancement. 10 mL Omniscan was injected intravenously. FINDINGS: HEMORRHAGE: None DWI: No evidence of an acute or early subacute infarction. BRAIN PARENCHYMA: There are mild chronic microangiopathic changes. There is no mass, mass effect or abnormal extra-axial fluid collection. There is no territorial infarction. The midline sagittal structures are normal. The hippocampi are symmetric and demonstrate normal signal intensity. No evidence for mesial temporal sclerosis. ENHANCEMENT: No abnormal intracranial enhancement. VENTRICLES: The ventricles are normal in size, shape and configuration. CRANIUM: There is normal bone marrow signal pattern. ORBITS: Grossly unremarkable. PARANASAL SINUSES/MASTOIDS: Mild mucosal thickening in the paranasal sinuses and trace mastoid effusions. VASCULAR SYSTEM: There are normal signal voids in the larger intracranial arteries. OTHER FINDINGS: None . IMPRESSION: Normal pre and post contrast enhanced MRI of the brain.
[2018-08-27] MEDS: Sodium Chloride 0.9% 1,000 ML IV SCH (03:30)
[2018-08-27 07:22] LABS: BASO % 0.1 % (0.0-2.0); LYMPH # 1.3 K/uL (1.0-4.3); LYMPH % 24.5 % (20.0-40.0); MEAN CELL VOLUME 86.7 fL (81.0-99.0); MEAN CORPUSCULAR HEMOGLOBIN 29.9 pg (27.0-31.0); MEAN CORPUSCULAR HGB CONC 34.4 g/dL (33.0-37.0); MEAN PLATELET VOLUME 7.1 fL (7.2-11.7); MONO # 0.4 K/uL (0.0-0.8); MONO % 7.4 % (0.0-10.0); NEUT # 3.5 K/uL (1.8-7.0); RBC 4.36 Mil/uL (3.80-5.20); RED CELL DISTRIBUTION WIDTH 13.4 % (11.5-14.5); WHITE BLOOD COUNT 5.2 K/uL (4.8-10.8)
[2018-08-27 07:41] LABS: ALB/GLOB RATIO 1.3 (1.0-2.1); ALBUMIN 3.5 g/dL (3.5-5.0); ALT/SGPT 45 U/L (9-52); AST/SGOT 42 U/L (14-36); BLOOD UREA NITROGEN 12 mg/dL (7-17); CALCIUM 8.8 mg/dl (8.6-10.4); GFR NON-AFRICAN AMERICAN > 60
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
[2018-08-27 08:18] VITALS: O2SAT 97
--- NOTE | 2018-08-27 08:47 | PCM.PYCHPN ---
Psychiatric Progress Note - Psychiatric Progress Note Patient seen today, length of contact: 20 min Patient Chief Complaint: "I'm better I think" Problems Identified/Issues Discussed: The pt is seen, chart reviewed, case discussed with staff. Support and psychoeducation given Pt is improving slowly and needs more time, still has ongoing symptoms. She will be transferred to psychiatry again No SEs from medications, risks discussed. After care discussed Of note, she later got into a tiff with RNs on the med floor bc she was likely cheeking her meds Also, team now suspects that her BF may have brought in barbiturates bc another outside source told them she was dating a BF who was on drugs. Medication Change: Yes (meds adjusted) Medical Record Reviewed: Yes Mental Status Examination - Cognitive Function Orientation: Person, Place, Situation, Time Memory: Intact Attention: WNL Concentration: Poor Association: WNL Fund of Knowledge: WNL - Mood Mood: Depressed, Anxious - Affect Affect: Constricted - Speech Speech: Appropriate - Formal Thought Process Formal Thought Process: No Impairment - Suicidal Ideation Suicidal Ideation: No - Homicidal Ideation Homicidal Ideation: No Goal/Treatment Plan - Goal/Treatment Plan Need for Continued Stay: Remain at risks for inpatient hospitalization, Severe depression anxiety, Discharge may exacerbated symptoms, Severe functional impairment Progress Toward Problem(s) and Goals/Treatment Plan: Continue meds (see changes) Support, psychoed DBT, CBT techniques Meditation, relaxation Groups Limit setting She CANNOT leave without health underwriter's knowledge. We may have to screen her if she attempts to leave AMA. Monitor bingeing - purging bhv Limit ativan use - she abuses it Transfer back to after medical clearance Estimated Date of D/C: 08/30/18
--- NOTE | 2018-08-27 14:04 | PCM.EEG ---
Electroencephalogram Report - Electroencephalogram Report Procedure Date: 08/26/18 Medication: Lioresal, cogentin, catapres, bentyl, lexapro, neurontin, prolexen, atarax, ativan Interpretation: Technical Information: This was a 16 -channel EEG, 1-channel EKG routine EEG performed using an [employer] machine. Electrodes were applied using the 10/20 international placement system. Start; 10;44 End; 11;07 Total; 22 min. Clinical Information: Alter mental status During resting wakefulness there was a symmetric posterior dominant rhythm at 8.5-9.5 Hz, 30-50 uV, which was reactive to eye opening and closing. Drowsiness (11;00) was associated with fragmentation of the posterior dominant rhythm and with slow roving eye movements. Light sleep was not recorded. Hyperventilation was not performed. Photic stimulation was performed and there were no changes on the record. Focal abnormality; none I Impression: This is a normal awake and drowsy electroencephalogram.
--- NOTE | 2018-08-27 14:56 | CP.PCM.PCO ---
Physician Communication Note - Physician Communication Note Physician Communication Note: neuro clearance
[2018-08-28] MEDS: POLYETHYLENE GLYCOL 3350 17 GM/Dose PACKET PO PRN (09:31)
--- NOTE | 2018-08-28 11:35 | PCM.PYCHPN ---
Psychiatric Progress Note - Psychiatric Progress Note Patient seen today, length of contact: 16 min Patient Chief Complaint: "I'm better I think" Problems Identified/Issues Discussed: The pt is seen again, chart reviewed, and case is discussed with the team. The pt denies any side-effects from meds. Attends activities and groups, brief individual therapy provided She is improving remarkably and will be ready for d/c soon BUt now not ready for discharge due to ongoing symptoms and high relapse risk. After care discussed again. IOP or rehab (pending response from few places) Still med-seeking Denied BF bringing meds but admitted that he too was on heroin (now suboxone maint.) Medication Change: Yes (meds adjusted) Medical Record Reviewed: Yes Mental Status Examination - Cognitive Function Orientation: Person, Place, Situation, Time Memory: Intact Attention: WNL Concentration: Poor Association: WNL Fund of Knowledge: WNL - Mood Mood: Depressed, Anxious - Affect Affect: Constricted - Speech Speech: Appropriate - Formal Thought Process Formal Thought Process: No Impairment - Suicidal Ideation Suicidal Ideation: No - Homicidal Ideation Homicidal Ideation: No Goal/Treatment Plan - Goal/Treatment Plan Need for Continued Stay: Remain at risks for inpatient hospitalization, Severe depression anxiety, Discharge may exacerbated symptoms, Severe functional impairment Progress Toward Problem(s) and Goals/Treatment Plan: Continue meds (see changes) Support, psychoed DBT, CBT techniques Meditation, relaxation Groups Limit setting She CANNOT leave without public relations writer's knowledge. We may have to screen her if she attempts to leave AMA. Monitor bingeing - purging bhv Limit ativan use - she abuses it Transfer back to after medical clearance Estimated Date of D/C: 08/30/18
[2018-08-29 06:52] VITALS: RESP 20
[2018-08-29] MEDS: POLYETHYLENE GLYCOL 3350 17 GM/Dose PACKET PO PRN (09:41)
[2018-08-30 06:48] VITALS: BP 100/66; PULSE 84; TEMP 98.4
[2018-08-30] MEDS: POLYETHYLENE GLYCOL 3350 17 GM/Dose PACKET PO PRN (09:18)
--- NOTE | 2018-08-30 10:00 | PCM.PYCHPN ---
Psychiatric Progress Note - Psychiatric Progress Note Patient seen today, length of contact: 16 min Patient Chief Complaint: "I'm anxious but better" Problems Identified/Issues Discussed: The pt is seen again, chart reviewed The pt denies any side-effects from meds. No SI, HI, self-injuriouos bhv She asked if she was accepted to any rehab but if not (which is likely due to her severe conditions)she is "OK with IOP" On the phone a lot. Medication Change: Yes (meds adjusted) Medical Record Reviewed: Yes Mental Status Examination - Cognitive Function Orientation: Person, Place, Situation, Time Memory: Intact Attention: WNL Concentration: Poor Association: WNL Fund of Knowledge: WNL - Mood Mood: Depressed, Anxious - Affect Affect: Constricted - Speech Speech: Appropriate - Formal Thought Process Formal Thought Process: No Impairment - Suicidal Ideation Suicidal Ideation: No - Homicidal Ideation Homicidal Ideation: No Goal/Treatment Plan - Goal/Treatment Plan Need for Continued Stay: Remain at risks for inpatient hospitalization, Severe depression anxiety, Discharge may exacerbated symptoms, Severe functional impairment Progress Toward Problem(s) and Goals/Treatment Plan: Continue meds (see changes) Support, psychoed DBT, CBT techniques Meditation, relaxation Groups Limit setting Monitor bingeing - purging bhv Estimated Date of D/C: 08/30/18
--- NOTE | 2018-08-30 10:01 | PCM.BM ---
<PhoebeZee - Last Filed: 08/30/18 10:00> Treatment Plan Problems - Problems identified on initial assessmt feelings of worthlessness Date Initiated: 08/21/18 Time Initiated: 20:28 Assessment reference: NA Status: Active hopelessness/helplessness Date Initiated: 08/21/18 Time Initiated: 20:30 Assessment reference: NA Status: Active suicidal ideation Date Initiated: 08/21/18 Time Initiated: 20:31 Assessment reference: NA Status: Active Treatment assets and liabiliti Patient Assests: cooperative, ADL independent, negotiates basic needs, cognitive ly intact Patient Liabilities: substance abuse, medical problems - Milieu Protocol Maintain good personal hygiene: daily Encourage regular showers, daily Remind patient to perform daily oral care, daily Assist patient to perform ADL's, every shift Encourage regular showers, every shift Remind patient to perform daily oral care, every shift Assist patient to perform ADL's Conduct patient checks and document Observation sheet: Q15 minutes Maintain personal safety: every shift Educate patient to report safety concerns to staff, every shift Monitor environment for contraband/sharps Medication safety: Monitor for expected outcome, potential side effects: every shift, Assess barriers to learning: every shift, Assess readiness for medication education: every shift Milieu Narrative: Continue meds (see changes) Support, psychoed DBT, CBT techniques Meditation, relaxation Groups Limit setting She CANNOT leave without documentation writer's knowledge. We may have to screen her if she attempts to leave AMA. Monitor bingeing - purging bhv Limit ativan use - she abuses it Transfer back to after medical clearance Family Contact Family involvement: Family/SO is involved Family contact: Patient agrees to contact Family contact name: Imtiaz Rios Family contacted how many times per week?: 1 Family contact comment: No contact made as of yet. - Goals for Treatment Patient goals for treatment: "I want to go home." Patient's family/SO goals for treatment: Unknown Discharge/Continuing Care - Education Needs Education Needs: Patient Medication, Patient Coping Skills - Discharge Discharge Criteria: Tolerates medication w/o severe side effects, Reduction of target symptoms Discharge to:: Home - Treatment Team Participation Patient/Family/SO Statement: Continue meds (see changes) Support, psychoed DBT, CBT techniques Meditation, relaxation Groups Limit setting She CANNOT leave without documentation writer's knowledge. We may have to screen her if she attempts to leave AMA. Monitor bingeing - purging bhv Limit ativan use - she abuses it Transfer back to after medical clearance Discussed with Family/SO: No Was Patient/Family/SO present at Treatment Team Meeting: Yes Treatment Plan Review - Problem feelings of worthlessness Time Initiated: 20:28 hopelessness/helplessness Time Initiated: 20:30 suicidal ideation Time Initiated: 20:31 - Discharge / Continuing Care Discharge to:: Home Behavioral Health Services: Intensive Outpatient Health Needs: Medications/Rx, Alcohol/Drug treatment <Lety Castro - Last Filed: 08/30/18 14:11> - Diagnosis (1) Opiate dependence Status: Acute Interventions: 08/30/18 14:11 * * Educate regarding risks, benefits, side effects and alternatives of medications * Use Motivational Interviewing for abstinence * Use CBT for relapse prevention * Medication management for withdrawal symptoms * Encourage medication assisted treatment * (2) Suicidal ideation Status: Acute Interventions: 08/30/18 14:11 * Assess/adjust medications daily and /or as needed * Discuss risks, benefits, side effects and alternatives of medications * See patient on an individual basis 7x/week to assess level of suicidal thoughts *
[2018-08-30 11:19] LABS: BARBITURATES, UR NEGATIVE (NEGATIVE); BENZODIAZEPINES, UR POSITIVE (NEGATIVE)
--- NOTE | 2018-08-30 11:29 | PCM.PYCHDC ---
Mental Status Examination - Mental Status Examination Orientation: Person, Place, Situation, Time Memory: Intact Mood: Anxious Affect: Constricted Speech: Appropriate Attention: WNL Concentration: WNL Association: WNL Fund of Knowledge: WNL Formal Thought Process: No Impairment Suicidal Ideation: No Current Homicidal Ideation?: No Discharge Summary - Discharge Note Reason for Hospitalization: Suicidal ideation Laboratory Data: Abnormal Lab Results 08/25/18 10:13 Urine Opiates Screen TEST NOT PERFORMED Urine Methadone Screen TEST NOT PERFORMED Ur Barbiturates Screen Negative Ur Phencyclidine Scrn TEST NOT PERFORMED Ur Amphetamines Screen TEST NOT PERFORMED U Benzodiazepines Scrn Positive H U Oth Cocaine Metabols TEST NOT PERFORMED U Cannabinoids Screen TEST NOT PERFORMED Consultations:: List each consultation separately and include: 1. Reason for request. 2. Findings. 3. Follow-up Summary of Hospital Course include:: 1. Description of specific treatment plan utilized for patients during their course of treatmen. 2. Summarize the time- course for resolution of acute symptoms and/or regressed behaviors. 3. Describe issues identified and worked on during hospitalization. 4. Describe medication utilized. 5. Describe medical problems identified and treated. 6. Reassessment of suicide risk Summary of Hospital Course: The pt was admitted and started on treatment with psychotherapy, support, psychoeducation and medications. GA and CBT used. The pt attended groups and activities, as well as milieu therapy. All the risks and benefits of medications are discussed and the patient under stood and agreed. The pt improved with the treatments provided. After care discussed with the patient. She left to go to [facility] IOP today at 2 pm appointment. She is rejected by couple of rehabs likely due to her eating d/o, seizures, meds, suicide attempts etc. She was interested in eating d/o program but she didn't want to wait for that referral and also she said she had been there before ([facility]) anyways. Risks of leaving early are discussed but she did not agree. Of note, we screenined her when she was at worst, in ICU, and she was denied by [facility]. She had a seizure on the unit and transferred to medicine. Her UDS came positive for barbs which she was not on, but she denied contraband as well. She then returned to [facility] and completed her treatment. Very complex patient who can be challenging but it was more drug-related than personality d/o - as she got calmer with abstinence How to deal with urges for drushgs, bingeing and purging or cutting discussed. - Final Diagnosis (DSM 5) Condition upon Discharge: STABLE DSM 5: Bipolar d/o - depressed Borderline personality d/o Bulimia Opioid use d/o - severe Sedative hypnotic use d/o - severe Disposition: HOME/ ROUTINE Follow-up Treatment Plan: Continue below medications after discharge. Follow after care plan as discussed. Use relapse prevention skills Return to ER or call 911 if suicidal, homicidal or symptoms relapse. Stay away from stress, alcohol and drugs. See primary doctor regularly and get labs. Prescriptions/Medication Reconciliation: Baclofen [Lioresal] 10 mg PO HS #15 tab Escitalopram [Lexapro] 20 mg PO DAILY #15 tab Gabapentin [Neurontin] 600 mg PO TID #45 tab hydrOXYzine HCl [Atarax] 50 mg PO BID PRN #30 tab PRN Reason: Anxiety Prazosin HCl [Minipress] 2 mg PO HS #30 cap Pregabalin [Lyrica] 50 mg PO BID #30 cap QUEtiapine [Seroquel] 100 mg PO HS #30 tab - Smoking Cessation Smoking Cessation Medication prescribed: No - Antipsychotic Medications Pt discharged on 2 or more routine antipsychotic medications: No
== END 2018-08-30 12:45 | disposition home or self-care (01) | DRG 885 ==
LOC: C.ER 14:25 → C.9I 23:13 → C.5S 08-20 15:33 → C.5E 08-21 17:25 → C.6T 08-25 20:48 → C.5E 08-27 13:13
PROVIDERS: ADMIT Psychiatry & Neurology Psychiatry; ATTEND Psychiatry & Neurology Psychiatry
DX: F31.4 Bipolar disorder, current episode depressed, severe, without psychotic features (principal); F11.23 Opioid dependence with withdrawal; F13.239 Sedative, hypnotic or anxiolytic dependence with withdrawal, unspecified; F10.239 Alcohol dependence with withdrawal, unspecified; F50.2 Bulimia nervosa; F60.3 Borderline personality disorder; G40.909 Epilepsy, unspecified, not intractable, without status epilepticus; T40.1X2A Poisoning by heroin, intentional self-harm, initial encounter; F41.9 Anxiety disorder, unspecified; K31.84 Gastroparesis; T42.8X2A Poisoning by antiparkinsonism drugs and other central muscle-tone depressants, intentional self-harm, initial encounter; M79.7 Fibromyalgia; F10.10 Alcohol abuse, uncomplicated; K58.9 Irritable bowel syndrome, unspecified; F50.9 Eating disorder, unspecified; F17.210 Nicotine dependence, cigarettes, uncomplicated; G89.29 Other chronic pain; Z76.5 Malingerer [conscious simulation]; Z91.5 Personal history of self-harm; Z88.8 Allergy status to other drugs, medicaments and biological substances; Z91.040 Latex allergy status

== ENCOUNTER 2018-08-30 13:21 | Emergency (ER) | payer MEDICARE ==
[2018-08-30 13:31] VITALS: BMI 24.9
--- NOTE | 2018-08-30 13:40 | C.PDOC ---
History Of Present Illness 27-year-old female, whose PMHx includes substance abuse and seizures, presents to the ED for evaluation of reported seizure activity noted upon discharge from the psychiatric floor today. Patient is a poor historian who presents with internist medical doctor md at bedside. As per resident, patient had a hospital course that included seizures with negative EEG and MRI. Time Seen by Provider: 08/30/18 13:27 Chief Complaint (Nursing): Seizure History Per: Patient, Other (internist medical doctor md ) History/Exam Limitations: other (poor historian ) Recent Seizure Activity Began: Just Before Arrival Additional History Per: Patient Past Medical History Reviewed: Historical Data, Nursing Documentation, Vital Signs Primary Care Provider: Non [facility] Provider, - Medical History PMH: Anxiety, Depression, Post Traumatic Stress Disorder, Seizures Denies: Diabetes, Hepatitis, HIV, HTN, Chronic Kidney Disease, Sexually Transmitted Disease Surgical History: No Surg Hx - [facility] Procedures DETOXIFICATION SERVICES FOR SUBSTANCE ABUSE TREATMENT (08/08/18) INDIV PSYCHOTHERAPY FOR SUBSTANCE ABUSE TREATMENT, SUPPORT (08/08/18) INDIV PSYCHOTHERAPY FOR SUBSTANCE ABUSE, PSYCHOEDUCATION (08/08/18) MEDICATION MANAGEMENT (08/08/18) MEDS MGMT FOR SUBSTANCE ABUSE TREATMENT, CLONIDINE (08/08/18) MEDS MGMT FOR SUBSTANCE ABUSE TREATMENT, NICOTINE REPLACE (08/08/18) Family History: States: Unknown Family Hx - Social History Hx Alcohol Use: Yes Hx Substance Use: Yes - Immunization History Hx Tetanus Toxoid Vaccination: No Hx Influenza Vaccination: No Hx Pneumococcal Vaccination: No Review Of Systems Neurological: Positive for: Seizures Physical Exam - Physical Exam Appears: Non-toxic, No Acute Distress Skin: Warm, Dry Head: Other (left facial contusion ) Eye(s): bilateral: Normal Inspection, PERRL, EOMI Oral Mucosa: Moist Neck: Supple Chest: Symmetrical, No Deformity, No Tenderness Cardiovascular: Rhythm Regular, No Murmur Respiratory: Normal Breath Sounds, No Rales, No Rhonchi, No Wheezing Gastrointestinal/Abdominal: Soft, No Tenderness, No Guarding, No Rebound Extremity: Normal ROM, Capillary Refill (less than 2 seconds ) Neurological/Psych: Oriented x3, Normal Speech, Normal Cognition ED Course And Treatment ECG: Interpreted By Me, Viewed By Me ECG Rhythm: Sinus Tachycardia Rate From EC Against Medical Advice - AMA Patient Left Against Medical Advice: The patient declines admission to the hospital and wishes to leave the Emergency Department. This action is against my medical advice. This decision was made w ith informed refusal. The patient was told that admission to the hospital is necessary. Explanation of the reasons why were discussed. The risks of leaving were explained to the patient and include, but are not limited to, worsening of known or currently unknown conditions, permanent disability and from undiagnosed or untreated conditions. The patient has the capacity to make this informed decision and understands my explanation of the current medical problem and risks of leaving. The patient voluntarily accepts these risks and signed an AMA form documenting our conversation. The patient was given the opportunity to ask questions and reconsider. The patient was encouraged to return to the Emergency Department at any time for further care. Medical Decision Making Medical Decision Making: in er, pt refuess labs. agrees to short observaiton as "has to make appt". Disposition - Disposition Referrals: Kyle Sorenson MD [Staff Provider] - Disposition: AGAINST MEDICAL ADVICE Disposition Time: 13:55 Condition: UNKNOWN Additional Instructions: return to any er with worsneing. Instructions: Seizures, Adult (DC), Leaving Against Medical Advice Forms: [facility] (Swiss) - Clinical Impression Clinical Impression: Seizure disorder, Left against medical advice - Scribe Statement The provider has reviewed the documentation as recorded by the Scribe (Valeri Malave) Provider Attestation: All medical record entries made by the Scribe were at my direction and personally dictated by me. I have reviewed the chart and agree that the record accurately reflects my personal performance of the history, physical exam, medical decision making, and the department course for this patient. I have also personally directed, reviewed, and agree with the discharge instructions and disposition.
--- NOTE | 2018-08-30 13:51 | PCM.RRT ---
PARIMUTUEL TICKET CHECKER Nurses Assessment - Situation Date: 08/30/18 Time PARIMUTUEL TICKET CHECKER was called: 01:12 PARIMUTUEL TICKET CHECKER Responder Arrival Time:: 01:13 PARIMUTUEL TICKET CHECKER Location:: Main Lobby PARIMUTUEL TICKET CHECKER Reason for Call: Change in Mental Status PARIMUTUEL TICKET CHECKER Called By: Other Disciplines (Security) - IV IV Inserted during PARIMUTUEL TICKET CHECKER?: No Plan - Assessment of Findings&Treatment Plan PARIMUTUEL TICKET CHECKER called at 1:12pm for seizure like activity. As per security on site, patient was walking out of facility after being discharged from 5E. She then appeared to fall, hitting her L zygomatic area and had seizure like activity. On arrival, patient is on ground, making unintelligable sounds, abrasion and bleeding to L zygomatic area and L druze, patient not answering questions or following commands, Pupils dilated, no c-spine tenderness, active ROM of neck intact. Patient became more responsive within the next few minutes, able to state her name, date and location. Patient placed on stretcher, transferred to ED and endorsed to ED physician and ED nurse.
[2018-08-30 14:00] VITALS: BP 126/88; PULSE 116; RESP 20; TEMP 98.1; O2SAT 95
== END 2018-08-30 14:05 | disposition left against medical advice (07) ==
LOC: C.ER 13:21
DX: G40.909 Epilepsy, unspecified, not intractable, without status epilepticus (principal); F43.10 Post-traumatic stress disorder, unspecified; F32.9 Major depressive disorder, single episode, unspecified

== ENCOUNTER 2018-08-30 15:14 | Inpatient (IN) | payer MEDICARE | END 2018-08-30 21:45 | disposition left against medical advice (07) | LOC: C.ER 15:14 → C.9E 19:49 → C.6T 20:07 ==

== ENCOUNTER 2018-09-02 10:52 | Inpatient (IN) | payer MEDICARE ==
[2018-09-02 10:52] VITALS: BMI 20.1
[2018-09-02 13:28] LABS: SQUAMOUS EPITHIAL 4 /hpf (0-5); URINE AMORPHOUS SEDIMENT FEW /ul (<OCC); URINE BILIRUBIN NEGATIVE (NEGATIVE); URINE BLOOD NEGATIVE (NEGATIVE); URINE GLUCOSE (UA) NORMAL (Normal); URINE LEUKOCYTE ESTERASE NEG Leu/uL (Negative); URINE PROTEIN NEGATIVE (NEGATIVE); URINE UROBILINOGEN NORMAL mg/dL (0.2-1.0)
[2018-09-02 13:29] LABS: URINE CLARITY SLIGHT-CLOUDY (Clear); URINE COLOR YELLOW (YELLOW)
[2018-09-02 13:48] LABS: BENZODIAZEPINES, UR NEGATIVE (NEGATIVE); OPIATES, UR NEGATIVE (NEGATIVE); PHENCYCLIDINE, UR NEGATIVE (NEGATIVE)
[2018-09-02 13:54] LABS: BASO % 0.4 % (0.0-2.0); LYMPH # 1.1 K/uL (1.0-4.3); LYMPH % 13.1 % (20.0-40.0); MEAN CELL VOLUME 86.3 fL (81.0-99.0); MEAN CORPUSCULAR HEMOGLOBIN 30.5 pg (27.0-31.0); MEAN CORPUSCULAR HGB CONC 35.3 g/dL (33.0-37.0); MEAN PLATELET VOLUME 7.7 fL (7.2-11.7); MONO # 0.4 K/uL (0.0-0.8); MONO % 4.7 % (0.0-10.0); NEUT # 6.9 K/uL (1.8-7.0); NEUT % 81.8 % (50.0-75.0); RBC 5.5 Mil/uL (3.80-5.20); RED CELL DISTRIBUTION WIDTH 14.4 % (11.5-14.5); WHITE BLOOD COUNT 8.5 K/uL (4.8-10.8)
[2018-09-02 13:55] LABS: HEMOGLOBIN 16.8 g/dL (11.0-16.0)
--- NOTE | 2018-09-02 13:57 | C.PDOC ---
History Of Present Illness 27 y/o female with hx of polysubstance abuse, gastroparesis, seizures (from withdrawal), neuropathy brought to ED by boyfriend since pt hasn't spoken since yesterday. pt recently admitted to [facility] on 08/19-08/30 to psych; pt has seizure on way out of hospital, seen in ED, had another seizure and left AMA on Thursday. Per boyfriend, with whom patient lives, pt stopped talking on Thursday and not taking prescribed medication. boyfriend hasn't noted any further seizure activity. pt seen at [facility] yesterday for not talking; pt had blood work and negative head ct scan there and was discharged. <Kaylee Leon - Last Filed: 09/02/18 16:55> History Per: Family, Other (partner) History/Exam Limitations: Clinical Condition Onset/Duration Of Symptoms: Days (2) Current Symptoms Are (Timing): Still Present Usual Baseline: Alert Oriented Exacerbating Factor(s): Unknown <Kaylee Leon - Last Filed: 09/02/18 16:55> <Shanice Marti - Last Filed: 09/04/18 19:20> Time Seen by Provider: 09/02/18 11:18 Chief Complaint (Nursing): Altered Mental Status Past Medical History Reviewed: Historical Data, Nursing Documentation, Vital Signs Vital Signs: Last Vital Signs Temp 97.7 F 09/02/18 11:28 Pulse 85 09/02/18 11:28 Resp 18 09/02/18 11:28 BP 132/93 H 09/02/18 11:28 Pulse Ox 99 09/02/18 11:28 Primary Care Provider: Non CPH Provider, - Medical History PMH: Anxiety, Depression, Post Traumatic Stress Disorder, Seizures Denies: Diabetes, Hepatitis, HIV, HTN, Chronic Kidney Disease, Sexually Transmitted Disease Other PMH: polysubstance abuse, gastroparesis, neuropathy Surgical History: No Surg Hx - [facility] Procedures DETOXIFICATION SERVICES FOR SUBSTANCE ABUSE TREATMENT (08/08/18) INDIV PSYCHOTHERAPY FOR SUBSTANCE ABUSE TREATMENT, SUPPORT (08/08/18) INDIV PSYCHOTHERAPY FOR SUBSTANCE ABUSE, PSYCHOEDUCATION (08/08/18) MEDICATION MANAGEMENT (08/08/18) MEDS MGMT FOR SUBSTANCE ABUSE TREATMENT, CLONIDINE (08/08/18) MEDS MGMT FOR SUBSTANCE ABUSE TREATMENT, NICOTINE REPLACE (08/08/18) Family History: States: Unknown Family Hx - Social History Hx Tobacco Use: Yes Hx Alcohol Use: Yes Hx Substance Use: Yes - Immunization History Hx Tetanus Toxoid Vaccination: No Hx Influenza Vaccination: No Hx Pneumococcal Vaccination: No <Kaylee Leon - Last Filed: 09/02/18 16:55> Vital Signs: Last Vital Signs Temp 97.7 F 09/02/18 11:28 Pulse 85 09/02/18 11:28 Resp 18 09/02/18 11:28 BP 132/93 H 09/02/18 11:28 Pulse Ox 99 09/02/18 16:19 - [facility] Procedures DETOXIFICATION SERVICES FOR SUBSTANCE ABUSE TREATMENT (08/08/18) INDIV PSYCHOTHERAPY FOR SUBSTANCE ABUSE TREATMENT, SUPPORT (08/08/18) INDIV PSYCHOTHERAPY FOR SUBSTANCE ABUSE, PSYCHOEDUCATION (08/08/18) MEDICATION MANAGEMENT (08/08/18) MEDS MGMT FOR SUBSTANCE ABUSE TREATMENT, CLONIDINE (08/08/18) MEDS MGMT FOR SUBSTANCE ABUSE TREATMENT, NICOTINE REPLACE (08/08/18) <Shanice Marti - Last Filed: 09/04/18 19:20> Review Of Systems Review Of Systems: ROS cannot be obtained secondary to pt's inabilty to answer questions. <Kaylee Leon - Last Filed: 09/02/18 16:55> Physical Exam - Physical Exam Appears: Non-toxic, No Acute Distress, Chronically Ill, Other (not speaking, follows most commands) Skin: Normal Color, Warm, Dry Head: Atraumatic, Normacephalic, No Tenderness (orbits), Other (scabbing distal to left eye, with left periorbital area ecchymosis and to left upper lid. (seizure and fall on Thursday), ) Eye(s): bilateral: EOMI, Other (markedly dilated, reactive pupils,) Ear(s): Bilateral: Normal Nose: Normal Oral Mucosa: Moist Throat: No Erythema, No Exudate Neck: Supple Chest: Symmetrical, No Tenderness Cardiovascular: Rhythm Regular, No Murmur Respiratory: Normal Breath Sounds, No Rales, No Rhonchi, No Wheezing Gastrointestinal/Abdominal: Soft, No Tenderness, No Guarding, No Rebound Extremity: Normal ROM, Other (multiple areas of ecchymosis to lower extremities, track basurto to lower legs and antecubital fossae) Neurological/Psych: Oriented x3, No Normal Speech, Normal Cognition <Kaylee Leon - Last Filed: 09/02/18 16:55> ED Course And Treatment - Laboratory Results Result Diagrams: 09/02/18 13:50 09/02/18 15:22 Lab Results: Urine Color Yellow (YELLOW) 09/02/18 13:19 Urine Clarity Slight-cloudy (Clear) 09/02/18 13:19 Urine pH 7.0 (5.0-8.0) 09/02/18 13:19 Ur Specific [place] 1.014 (1.003-1.030) 09/02/18 13:19 Urine Protein Negative mg/dL (NEGATIVE) 09/02/18 13:19 Urine Glucose (UA) Normal mg/dL (Normal) 09/02/18 13:19 Urine Ketones Negative mg/dL (NEGATIVE) 09/02/18 13:19 Urine Blood Negative (NEGATIVE) 09/02/18 13:19 Urine Nitrate Negative (NEGATIVE) 09/02/18 13:19 Urine Bilirubin Negative (NEGATIVE) 09/02/18 13:19 Urine Urobilinogen Normal mg/dL (0.2-1.0) 09/02/18 13:19 Ur Leukocyte Esterase Neg Harini/uL (Negative) 09/02/18 13:19 Urine WBC (Auto) 1 /hpf (0-5) 09/02/18 13:19 Urine RBC (Auto) < 1 /hpf (0-3) 09/02/18 13:19 Ur Squamous Epith Cells 4 /hpf (0-5) 09/02/18 13:19 Amorphous Sediment Few /ul (<OCC) H 09/02/18 13:19 O2 Sat by Pulse Oximetry: 99 (RA) Pulse Ox Interpretation: Normal <Kaylee Leon - Last Filed: 09/02/18 16:55> - Laboratory Results Result Diagrams: 09/02/18 13:50 09/02/18 15:22 Lab Results: Total Bilirubin 0.4 mg/dL (0.2-1.3) 09/02/18 15:22 AST 22 U/L (14-36) 09/02/18 15:22 ALT 23 U/L (9-52) 09/02/18 15:22 Alkaline Phosphatase 59 U/L (38-126) 09/02/18 15:22 Total Protein 7.6 g/dL (6.3-8.3) 09/02/18 15:22 Albumin 4.2 g/dL (3.5-5.0) 09/02/18 15:22 Globulin 3.4 gm/dL (2.2-3.9) 09/02/18 15:22 Albumin/Globulin Ratio 1.3 (1.0-2.1) 09/02/18 15:22 Urine Color Yellow (YELLOW) 09/02/18 13:19 Urine Clarity Slight-cloudy (Clear) 09/02/18 13:19 Urine pH 7.0 (5.0-8.0) 09/02/18 13:19 Ur Specific [place] 1.014 (1.003-1.030) 09/02/18 13:19 Urine Protein Negative mg/dL (NEGATIVE) 09/02/18 13:19 Urine Glucose (UA) Normal mg/dL (Normal) 09/02/18 13:19 Urine Ketones Negative mg/dL (NEGATIVE) 09/02/18 13:19 Urine Blood Negative (NEGATIVE) 09/02/18 13:19 Urine Nitrate Negative (NEGATIVE) 09/02/18 13:19 Urine Bilirubin Negative (NEGATIVE) 09/02/18 13:19 Urine Urobilinogen Normal mg/dL (0.2-1.0) 09/02/18 13:19 Ur Leukocyte Esterase Neg Harini/uL (Negative) 09/02/18 13:19 Urine WBC (Auto) 1 /hpf (0-5) 09/02/18 13:19 Urine RBC (Auto) < 1 /hpf (0-3) 09/02/18 13:19 Ur Squamous Epith Cells 4 /hpf (0-5) 09/02/18 13:19 Amorphous Sediment Few /ul (<OCC) H 09/02/18 13:19 <Shanice Marti - Last Filed: 09/04/18 19:20> Supervising Attending Note - Supervising Attending Note The Documented history was done by the: Physician Job Captain The documented physical exam was done by the: Physician Job Captain The documented procedures were done by the: Physician Job Captain EM CAVEAT: Acuity of Condition - Attestation: I have personally seen and examined this patient.: Yes I have fully participated in the care of the patient.: Yes I have reviewed all pertinent clinical information: Yes - Notes: Notes:: RECUR NONVERBAL, FAILURE TO THRIVE SINCE YEST. HO PRIOR NONVERBAL EPISODES. PREVIOUS ADMISSION TO ICU DURING RECENT ADMISSION FOR BREAKTHROUGH SZ. MULT RECENT BRAIN IMAGING WITHOUT ACUTE FINDINGS <KaiaShanice - Last Filed: 09/04/18 19:20> Progress - Re-Evaluation Re-evaluation Note: 09/02/18 16:35 PER CRISIS MED, INSTRUCTIONS BY DR WALKER THAT PATIENT IS NOT APPROPRIATE FOR PSYCH ADMISSION DUE TO CURRENT CLINICAL CONDITION. WELL KNOWN FROM PRIOR ADMISSION AND STATES PT NEEDS FULL MEDICAL EVALUATION BEFORE PSYCH EVAL. PT REMAINS NONVERBAL, NONINTERACTIVE D/W DR INESSA ANN FERRYBOAT DECKHAND AWARE OF ER FINDINGS WILL ADMIT - Data Reviewed Data Reviewed: Lab, Diagnostic imaging, Old records <Shanice Marti - Last Filed: 09/04/18 19:20> Medical Decision Making Medical Decision Making: Plan: Chemistry CBC Glucose POC Urine Urinalysis crisis eval approx 1300 discussed with crisis; pt known to team; was discharged on Thursday. Await medical clearance. pt is difficult blood draw; many attempts being made. approx 1630 discussed with Laurie from crisis team; pt in this condition, not suitable for psychiatric floor. <Kaylee Leon - Last Filed: 09/02/18 16:55> Disposition <Kaylee Leon - Last Filed: 09/02/18 16:55> Counseled Patient/Family Regarding: Studies Performed, Diagnosis - Disposition Disposition Time: 16:40 <Shanice Marti - Last Filed: 09/04/18 19:20> - Disposition Disposition: HOSPITALIZED Condition: STABLE - Clinical Impression Clinical Impression: Altered behavior, Altered mental state - PA / TRANSPORTATION SERVICES REPRESENTATIVE / Resident Statement MD/DO has reviewed & agrees with the documentation as recorded. - Scribe Statement The provider has reviewed the documentation as recorded by the Scribe (Angel Luis Barone) All medical record entries made by the Scribe were at my direction and personally dictated by me. I have reviewed the chart and agree that the record accurately reflects my personal performance of the history, physical exam, medical decision making, and the department course for this patient. I have also personally directed, reviewed, and agree with the discharge instructions and disposition. <Kaylee Leon - Last Filed: 09/02/18 16:55>
[2018-09-02 14:21] LABS: BARBITURATES, UR POSITIVE (NEGATIVE)
[2018-09-02 15:40] LABS: ALB/GLOB RATIO 1.3 (1.0-2.1); ALBUMIN 4.2 g/dL (3.5-5.0); ALT/SGPT 23 U/L (9-52); AST/SGOT 22 U/L (14-36); BLOOD UREA NITROGEN 13 mg/dL (7-17); CALCIUM 9.6 mg/dl (8.6-10.4); GFR NON-AFRICAN AMERICAN > 60
[2018-09-02] MEDS: Sodium Chloride 0.9% 1,000 ML IV SCH ×2 (17:04→21:52)
--- NOTE | 2018-09-02 19:23 | CP.PCM.HP ---
History of Present Illness - History of Present Illness History of Present Illness: 27 y/o female with hx of polysubstance abuse, gastroparesis, seizures (from withdrawal), neuropathy brought to ED by boyfriend since pt hasn't spoken since yesterday. pt recently admitted to [facility] on 08/19-08/30 to psych; pt has seizure on way out of hospital, seen in ED, had another seizure and left AMA on Thursday PT HAD COMPLETE NORMAL NEURO W/U INCLUDING EEG CURRENTLY PT IS ADMITTED FOR CMS AND FAILURE TO THRIVE Present on Admission - Present on Admission Any Indicators Present on Admission: No Review of Systems - Review of Systems Systems not reviewed;Unavailable: Altered Mental Status Past Patient History - Tetanus Immunizations Tetanus Immunization: Unknown - Past Medical History & Family History Past Medical History?: Yes - Past Social History Smoking Status: Heavy Smoker > 10 Cigarettes Daily - CARDIAC Hx Hypertension: No - PULMONARY Hx Tuberculosis: No - NEUROLOGICAL Hx Seizures: Yes - HEENT Hx HEENT Problems: No - RENAL Hx Chronic Kidney Disease: No - ENDOCRINE/METABOLIC Hx Endocrine Disorders: No - HEMATOLOGICAL/ONCOLOGICAL Hx Human Immunodeficiency Virus (HIV): No - INTEGUMENTARY Hx Dermatological Problems: No - MUSCULOSKELETAL/RHEUMATOLOGICAL Hx Falls: No - GASTROINTESTINAL Hx Irritable Bowel: Yes Other/Comment: gastropharesis - GENITOURINARY/GYNECOLOGICAL Hx Sexually Transmitted Disorders: No - PSYCHIATRIC Hx Anxiety: Yes Hx Depression: Yes Hx Post Traumatic Stress Disorder: Yes Hx Substance Use: Yes - SURGICAL HISTORY Hx Surgeries: No - ANESTHESIA Hx Anesthesia: No Hx Anesthesia Reactions: No Hx Malignant Hyperthermia: No Meds Allergies/Adverse Reactions: Allergies Allergy/AdvReac Type Severity Reaction Status Date / Time latex Allergy RASH Verified 09/02/18 11:44 metoclopramide [From Reglan] Allergy RASH Verified 09/02/18 11:44 Physical Exam - Constitutional Appears: Well - Eye Exam Eye Exam: EOMI, Normal appearance, PERRL - ENT Exam ENT Exam: Mucous Membranes Moist, Normal Exam - Neck Exam Neck exam: Positive for: Normal Inspection - Respiratory Exam Respiratory Exam: Clear to Auscultation Bilateral, NORMAL BREATHING PATTERN - Cardiovascular Exam Cardiovascular Exam: REGULAR RHYTHM - GI/Abdominal Exam GI & Abdominal Exam: Normal Bowel Sounds, Soft. absent: Tenderness - Extremities Exam Extremities exam: Positive for: normal inspection - Back Exam Back exam: NORMAL INSPECTION - Neurological Exam Neurological exam: Altered, CN II-XII Intact, Reflexes Normal Results - Vital Signs Recent Vital Signs: Last Vital Signs Temp 98.5 F 09/02/18 17:55 Pulse 87 09/02/18 17:55 Resp 20 09/02/18 17:55 BP 119/74 09/02/18 17:55 Pulse Ox 99 09/02/18 17:55 - Labs Result Diagrams: 09/02/18 13:50 09/02/18 15:22 Labs: Laboratory Results - last 24 hr 09/02/18 09/02/18 09/02/18 11:26 13:19 13:19 WBC RBC Hgb Hct MCV MCH MCHC RDW Plt Count MPV Neut % (Auto) Lymph % (Auto) [place] % (Auto) Eos % (Auto) Baso % (Auto) Neut # (Auto) Lymph # (Auto) [place] # (Auto) Eos # (Auto) Baso # (Auto) Sodium Potassium Chloride Carbon Dioxide Anion Gap BUN Creatinine Est GFR ( Amer) Est GFR (Non-Af Amer) POC Glucose (mg/dL) 99 Random Glucose Calcium Phosphorus Magnesium Total Bilirubin AST ALT Alkaline Phosphatase Total Protein Albumin Globulin Albumin/Globulin Ratio Urine Color Yellow Urine Clarity Slight-cloudy Urine pH 7.0 Ur Specific [employer] 1.014 Urine Protein Negative Urine Glucose (UA) Normal Urine Ketones Negative Urine Blood Negative Urine Nitrate Negative Urine Bilirubin Negative Urine Urobilinogen Normal Ur Leukocyte Esterase Neg Urine WBC (Auto) 1 Urine RBC (Auto) < 1 Ur Squamous Epith Cells 4 Amorphous Sediment Few H Urine Opiates Screen Negative Urine Methadone Screen Negative Ur Barbiturates Screen Positive H Ur Phencyclidine Scrn Negative Ur Amphetamines Screen Negative U Benzodiazepines Scrn Negative U Oth Cocaine Metabols Negative U Cannabinoids Screen Negative Alcohol, Quantitative 09/02/18 09/02/18 13:50 15:22 WBC 8.5 RBC 5.50 H Hgb 16.8 H D Hct 47.5 H MCV 86.3 MCH 30.5 MCHC 35.3 RDW 14.4 Plt Count 478 H D MPV 7.7 Neut % (Auto) 81.8 H Lymph % (Auto) 13.1 L [place] % (Auto) 4.7 Eos % (Auto) 0.0 Baso % (Auto) 0.4 Neut # (Auto) 6.9 Lymph # (Auto) 1.1 [place] # (Auto) 0.4 Eos # (Auto) 0.0 Baso # (Auto) 0.0 Sodium 140 Potassium 3.7 Chloride 103 Carbon Dioxide 27 Anion Gap 14 BUN 13 Creatinine 0.7 Est GFR ( Amer) > 60 Est GFR (Non-Af Amer) > 60 POC Glucose (mg/dL) Random Glucose 120 H D Calcium 9.6 Phosphorus 3.1 Magnesium 1.9 Total Bilirubin 0.4 AST 22 ALT 23 Alkaline Phosphatase 59 Total Protein 7.6 Albumin 4.2 Globulin 3.4 Albumin/Globulin Ratio 1.3 Urine Color Urine Clarity Urine pH Ur Specific [employer] Urine Protein Urine Glucose (UA) Urine Ketones Urine Blood Urine Nitrate Urine Bilirubin Urine Urobilinogen Ur Leukocyte Esterase Urine WBC (Auto) Urine RBC (Auto) Ur Squamous Epith Cells Amorphous Sediment Urine Opiates Screen Urine Methadone Screen Ur Barbiturates Screen Ur Phencyclidine Scrn Ur Amphetamines Screen U Benzodiazepines Scrn U Oth Cocaine Metabols U Cannabinoids Screen Alcohol, Quantitative < 10 Assessment & Plan (1) Altered behavior Status: Acute (2) Seizure disorder Status: Acute
[2018-09-03] MEDS: Sodium Chloride 0.9% 1,000 ML IV SCH ×5 (02:10→22:02)
[2018-09-03 08:12] VITALS: RESP 20
--- NOTE | 2018-09-03 09:41 | PCM.PSYCH ---
Initial Psychiatric Evaluation - Initial Psychiatric Evaluation Type of Admission: Voluntary Legal Status: Capacity Chief Complaint (in patient's own words): As per staff family, patient is not talking History of Present Illness and Precipitating Events: Pt is a 27 year old female who was escorted to the [facility] ED in a mute state. Patient has a long history of bipolar disorder and polysubstance abuse disorder. She was just discharged from [facility] 5 E. 5 days ago. She was admitted after a drug overdose in the ICU, from where she was transferred to 5 E. As per the family, she was discharged on Thursday from the hospital. During her way out of the hospital, she had a seizure. She was taken to the ED. She refused to stay and wanted to leave. She was discharged and during her way outside she had another seizure. She was admitted to the floor. As soon as she got better she signed herself out from the floor. On Thursday she started becoming partially mute and started nonresponding with the family. Family got concerned and escorted her to the hospital. Patient is looking around but not talking. She is just nodding her head. She appeared paranoid, delusional and confused. As per the family she is not homicidal or suicidal. And family denies any auditory hallucinations or disorganized behavior. PMHx: History of seizures Current Medications: Active Medications Generic Name Dose Route Start Last Admin Trade Name Freq PRN Reason Stop Dose Admin Sodium Chloride 1,000 mls @ 200 mls/hr 09/02/18 17:00 09/03/18 08:43 Sodium Chloride 0.9% IV 200 mls/hr .Q5H STACY Administration Past Psychiatric History - Past Psychiatric History Previous Treatment History: Inpatient Pertinent Medical Hx (Current Medical&Sleep Prob, Allergies): Allergies Allergy/AdvReac Type Severity Reaction Status Date / Time latex Allergy RASH Verified 09/02/18 11:44 metoclopramide [From Reglan] Allergy RASH Verified 09/02/18 11:44 No Known Home Med 09/02/18 Review of Systems - Psychiatric Psychiatric: Anxiety Mental Status Examination - Personal Presentation Personal Presentation: Looks stated age - Affect Affect: Constricted - Motor Activity Motor Activity: Psychomotor Retardation - Reliability in Providing Information Reliability in Providing Information: Poor, due to cognitve impairment - Speech Speech: Disorganized - Mood Mood: Anxious - Formal Thought Process Formal Thought Process: No Impairment - Obsessions/Compulsions Obsessions: No Compulsions: No - Cognitive Functions Sensorium: Stuporous Attention/Concentration: Easily distracted Estimate of Intelligence: Below average Judgement: Imparied, as evidence by: Poor judgement, Imparied, as evidence by: Lack of insight into illness - Risk Risk: Diminished functioning - Strength & Assets Inventory Strength & Assets Inventory: Family support DSM 5 DX - DSM 5 DSM 5 Diagnosis: Rule out delirium Bipolar disorder mixed severe without psychotic features Opioid use disorder severe Cannabis use disorder severe - Recommended/Plan of Treatment Treatment Recommendations and Plan of Treatment: Rule out delirium Bipolar disorder mixed severe without psychotic features Opioid use disorder severe Cannabis use disorder severe Supportive therapy Start Neurontin Hold of the medications Psychiatry will follow.
--- NOTE | 2018-09-03 10:07 | CP.PCM.PN ---
Subjective - Date & Time of Evaluation Date of Evaluation: 09/03/18 Time of Evaluation: 10:06 - Subjective Subjective: CLINICALLY REMAINS SAME DOES EAT WHEN FED P/E SAME WILL WAIT FOR PSYCH EVAL Objective - Vital Signs/Intake and Output Vital Signs (last 24 hours): Temp Pulse Resp BP Pulse Ox 97.8 F 77 20 136/87 100 09/03/18 08:00 09/03/18 08:00 09/03/18 08:00 09/03/18 08:00 09/03/18 08:00 Intake and Output: 09/02/18 09/03/18 23:59 11:59 Intake Total 1720 Balance 1720 - Medications Medications: Current Medications Gabapentin (Neurontin) 300 mg PO TID STACY Hydroxyzine HCl (Atarax) 25 mg PO Q6 PRN PRN Reason: Anxiety Sodium Chloride (Sodium Chloride 0.9%) 1,000 mls @ 200 mls/hr IV .Q5H STACY Last Admin: 09/03/18 08:43 Dose: 200 mls/hr - Labs Labs: 09/02/18 13:50 09/02/18 15:22 Assessment and Plan (1) Altered behavior Status: Acute (2) Seizure disorder Status: Acute
--- NOTE | 2018-09-03 13:48 | CP.PCM.CON ---
History of Present Illness - History of Present Illness History of Present Illness: Neurology Consultation Note: Consult requested by Dr. Barker Ms. Millan is a 27-year-old woman with a past medical history of polysubstance abuse, borderline personality disorder, non-epileptic seizures, alcohol withdrawal seizures, as well as possibly real seizures 5 years ago, who brought to the ED by her boyfriend for not speaking to him for the past several days. Neurology was consulted for altered mental status. The patient was alert, awake, but mute and not following any commands although she would turn her head toward people in the room when they were speaking. Review of Systems - Review of Systems Systems not reviewed;Unavailable: Altered Mental Status, Psychotic Past Patient History - Tetanus Immunizations Tetanus Immunization: Unknown - Past Medical History & Family History Past Medical History?: Yes - Past Social History Smoking Status: Heavy Smoker > 10 Cigarettes Daily - CARDIAC Hx Hypertension: No - PULMONARY Hx Tuberculosis: No - NEUROLOGICAL Hx Seizures: Yes - HEENT Hx HEENT Problems: No - RENAL Hx Chronic Kidney Disease: No - ENDOCRINE/METABOLIC Hx Endocrine Disorders: No - HEMATOLOGICAL/ONCOLOGICAL Hx Human Immunodeficiency Virus (HIV): No - INTEGUMENTARY Hx Dermatological Problems: No - MUSCULOSKELETAL/RHEUMATOLOGICAL Hx Falls: No - GASTROINTESTINAL Hx Irritable Bowel: Yes Other/Comment: gastropharesis - GENITOURINARY/GYNECOLOGICAL Hx Sexually Transmitted Disorders: No - PSYCHIATRIC Hx Anxiety: Yes Hx Depression: Yes Hx Post Traumatic Stress Disorder: Yes Hx Substance Use: Yes - SURGICAL HISTORY Hx Surgeries: No - ANESTHESIA Hx Anesthesia: No Hx Anesthesia Reactions: No Hx Malignant Hyperthermia: No Meds Allergies/Adverse Reactions: Allergies Allergy/AdvReac Type Severity Reaction Status Date / Time latex Allergy RASH Verified 09/02/18 11:44 metoclopramide [From Reglan] Allergy RASH Verified 09/02/18 11:44 - Medications Medications: Current Medications Gabapentin (Neurontin) 300 mg PO TID [facility] Last Admin: 09/03/18 13:34 Dose: 300 mg Hydroxyzine HCl (Atarax) 25 mg PO Q6 PRN PRN Reason: Anxiety Sodium Chloride (Sodium Chloride 0.9%) 1,000 mls @ 200 mls/hr IV .Q5H [facility] Last Admin: 09/03/18 12:59 Dose: 200 mls/hr Physical Exam - Constitutional Appears: Well - Head Exam Head Exam: ATRAUMATIC, NORMAL INSPECTION, NORMOCEPHALIC - Eye Exam Eye Exam: EOMI, Normal appearance, PERRL Pupil Exam: NORMAL ACCOMODATION, PERRL - ENT Exam ENT Exam: Mucous Membranes Moist, Normal Exam - Neck Exam Neck exam: Positive for: Normal Inspection - Respiratory Exam Respiratory Exam: Clear to Auscultation Bilateral, NORMAL BREATHING PATTERN - Cardiovascular Exam Cardiovascular Exam: REGULAR RHYTHM - GI/Abdominal Exam GI & Abdominal Exam: Normal Bowel Sounds, Soft. absent: Tenderness - Extremities Exam Extremities exam: Positive for: normal inspection - Back Exam Back exam: NORMAL INSPECTION - Neurological Exam Neurological exam: Alert, CN II-XII Intact, Normal Gait, Reflexes Normal Additional comments: Mute and not following commands. - Psychiatric Exam Psychiatric exam: Normal Affect, Normal Mood - Skin Skin Exam: Dry, Intact, Normal Color, Warm Results - Vital Signs Recent Vital Signs: Last Vital Signs Temp 97.8 F 09/03/18 08:00 Pulse 77 09/03/18 08:00 Resp 20 09/03/18 08:00 BP 136/87 09/03/18 08:00 Pulse Ox 100 09/03/18 08:00 - Labs Result Diagrams: 09/02/18 13:50 09/02/18 15:22 Labs: Laboratory Results - last 24 hr 09/02/18 09/02/18 09/02/18 13:19 13:50 15:22 WBC 8.5 RBC 5.50 H Hgb 16.8 H D Hct 47.5 H MCV 86.3 MCH 30.5 MCHC 35.3 RDW 14.4 Plt Count 478 H D MPV 7.7 Neut % (Auto) 81.8 H Lymph % (Auto) 13.1 L [place] % (Auto) 4.7 Eos % (Auto) 0.0 Baso % (Auto) 0.4 Neut # (Auto) 6.9 Lymph # (Auto) 1.1 [place] # (Auto) 0.4 Eos # (Auto) 0.0 Baso # (Auto) 0.0 Sodium 140 Potassium 3.7 Chloride 103 Carbon Dioxide 27 Anion Gap 14 BUN 13 Creatinine 0.7 Est GFR ( Amer) > 60 Est GFR (Non-Af Amer) > 60 Random Glucose 120 H D Calcium 9.6 Phosphorus 3.1 Magnesium 1.9 Total Bilirubin 0.4 AST 22 ALT 23 Alkaline Phosphatase 59 Total Protein 7.6 Albumin 4.2 Globulin 3.4 Albumin/Globulin Ratio 1.3 Urine Opiates Screen Negative Urine Methadone Screen Negative Ur Barbiturates Screen Positive H Ur Phencyclidine Scrn Negative Ur Amphetamines Screen Negative U Benzodiazepines Scrn Negative U Oth Cocaine Metabols Negative U Cannabinoids Screen Negative Alcohol, Quantitative < 10 Assessment & Plan (1) Altered behavior Assessment and Plan: The patient most likely has conversion disorder. No seizures noted this time; however, I would recommend starting depakote 500 mg BID for mood stabilization and seizure prophylaxis. EEG can be obtained. No further recommendations. Thank you. Status: Acute
[2018-09-04] MEDS: Sodium Chloride 0.9% 1,000 ML IV SCH ×4 (05:32→18:44)
[2018-09-04] MEDS ORDERED: Pneumococcal 23-Valent Vaccine IM ONE (10:00)
--- NOTE | 2018-09-04 11:49 | CP.PCM.PN ---
Subjective - Date & Time of Evaluation Date of Evaluation: 09/04/18 Time of Evaluation: 11:48 - Subjective Subjective: NON VERBAL WITH MULTIPLE ATTEMPTS TO START CONVERSATION ONCE DID FOLLOW ON COMMAND OF 'OPEN MOUTH' VS STABLE PSYCH EVAL Objective - Vital Signs/Intake and Output Vital Signs (last 24 hours): Temp Pulse Resp BP Pulse Ox 97.5 F L 72 20 118/77 95 09/04/18 08:00 09/04/18 08:00 09/04/18 08:00 09/04/18 08:00 09/04/18 08:00 Intake and Output: 09/03/18 09/04/18 23:59 11:59 Intake Total 3450 240 Balance 3450 240 - Medications Medications: Current Medications Gabapentin (Neurontin) 300 mg PO TID [facility] Last Admin: 09/04/18 11:00 Dose: 300 mg Hydroxyzine HCl (Atarax) 25 mg PO Q6 PRN PRN Reason: Anxiety Sodium Chloride (Sodium Chloride 0.9%) 1,000 mls @ 200 mls/hr IV .Q5H [facility] Last Admin: 09/04/18 05:32 Dose: Not Given - Labs Labs: 09/02/18 13:50 09/02/18 15:22 Assessment and Plan (1) Altered behavior Status: Acute (2) Seizure disorder Status: Acute
[2018-09-05] MEDS: Sodium Chloride 0.9% 1,000 ML IV SCH ×4 (01:04→14:52)
--- NOTE | 2018-09-05 11:56 | CP.PCM.PN ---
Subjective - Date & Time of Evaluation Date of Evaluation: 09/05/18 Time of Evaluation: 11:55 - Subjective Subjective: PT. MORE RESPONDING AND COMMUNICATING INTAKE BETTER D/W MOTHER FURTHER CARE Objective - Vital Signs/Intake and Output Vital Signs (last 24 hours): Temp Pulse Resp BP Pulse Ox 97.6 F 80 20 113/77 100 09/05/18 08:06 09/05/18 08:06 09/05/18 08:06 09/05/18 08:06 09/05/18 08:06 Intake and Output: 09/04/18 09/05/18 23:59 11:59 Intake Total 1900 Balance 1900 - Medications Medications: Current Medications Erythromycin (Erythromycin) 250 mg PO AC [facility]; Protocol Last Admin: 09/05/18 07:36 Dose: 250 mg Gabapentin (Neurontin) 300 mg PO TID [facility] Last Admin: 09/05/18 10:32 Dose: 300 mg Hydroxyzine HCl (Atarax) 25 mg PO Q6 PRN PRN Reason: Anxiety Last Admin: 09/04/18 21:42 Dose: 25 mg Sodium Chloride (Sodium Chloride 0.9%) 1,000 mls @ 200 mls/hr IV .Q5H [facility] Last Admin: 09/05/18 11:09 Dose: Not Given Lactulose (Enulose) 20 gm PO HS [facility] Last Admin: 09/04/18 21:31 Dose: 20 gm - Labs Labs: 09/02/18 13:50 09/02/18 15:22 Assessment and Plan (1) Altered behavior Status: Acute (2) Seizure disorder Status: Acute
--- NOTE | 2018-09-06 10:19 | CP.PCM.DIS ---
Provider - Provider Date of Admission: 09/04/18 18:11 Attending physician: Ciro Barker MD Consults: 09/02/18 12:45 Physician Consult Stat Comment: *ALREADY CALLED Consulting Provider: Lety Castro Consulting Physician: Lety Castro Reason for Consult: AMS, BORDERLINE PERSONALITY Additional Comments: *ALREADY CALLED 09/02/18 16:45 Case Management Referral ONCE Comment: Physician Instructions: Reason For Exam: Reason for Referral: Discharge Planning 09/02/18 19:56 Neurology Consult Routine Comment: Consulting Provider: Kyle Sorenson Consulting Physician: Kyle Sorenson Reason for Consult: AMS Time Spent in preparation of Discharge (in minutes): 35 Diagnosis - Discharge Diagnosis (1) Altered behavior Status: Acute (2) Seizure disorder Status: Acute Hospital Course - Lab Results Lab Results: Micro Results 09/02/18 21:26 Urine,Clean Catch Urine Culture - Final Streptococcus anginosus group 09/02/18 22:13 Blood-Venous Blood Culture - Preliminary NO GROWTH AFTER 3 DAYS 09/02/18 22:13 Blood-Venous Blood Culture - Preliminary NO GROWTH AFTER 3 DAYS Most Recent Lab Values WBC 8.5 K/uL (4.8-10.8) 09/02/18 13:50 RBC 5.50 Mil/uL (3.80-5.20) H 09/02/18 13:50 Hgb 16.8 g/dL (11.0-16.0) H D 09/02/18 13:50 Hct 47.5 % (34.0-47.0) H 09/02/18 13:50 MCV 86.3 fL (81.0-99.0) 09/02/18 13:50 MCH 30.5 pg (27.0-31.0) 09/02/18 13:50 MCHC 35.3 g/dL (33.0-37.0) 09/02/18 13:50 RDW 14.4 % (11.5-14.5) 09/02/18 13:50 Plt Count 478 K/uL (130-400) H D 09/02/18 13:50 MPV 7.7 fL (7.2-11.7) 09/02/18 13:50 Neut % (Auto) 81.8 % (50.0-75.0) H 09/02/18 13:50 Lymph % (Auto) 13.1 % (20.0-40.0) L 09/02/18 13:50 Burke % (Auto) 4.7 % (0.0-10.0) 09/02/18 13:50 Eos % (Auto) 0.0 % (0.0-4.0) 09/02/18 13:50 Baso % (Auto) 0.4 % (0.0-2.0) 09/02/18 13:50 Neut # (Auto) 6.9 K/uL (1.8-7.0) 09/02/18 13:50 Lymph # (Auto) 1.1 K/uL (1.0-4.3) 09/02/18 13:50 Burke # (Auto) 0.4 K/uL (0.0-0.8) 09/02/18 13:50 Eos # (Auto) 0.0 K/uL (0.0-0.7) 09/02/18 13:50 Baso # (Auto) 0.0 K/uL (0.0-0.2) 09/02/18 13:50 Sodium 140 mmol/L (132-148) 09/02/18 15:22 Potassium 3.7 mmol/L (3.6-5.2) 09/02/18 15:22 Chloride 103 mmol/L (98-107) 09/02/18 15:22 Carbon Dioxide 27 mmol/L (22-30) 09/02/18 15:22 Anion Gap 14 (10-20) 09/02/18 15:22 BUN 13 mg/dL (7-17) 09/02/18 15:22 Creatinine 0.7 mg/dL (0.7-1.2) 09/02/18 15:22 Est GFR ( Amer) > 60 09/02/18 15:22 Est GFR (Non-Af Amer) > 60 09/02/18 15:22 POC Glucose (mg/dL) 99 mg/dL (65-110) 09/02/18 11:26 Random Glucose 120 mg/dL (65-105) H D 09/02/18 15:22 Calcium 9.6 mg/dl (8.6-10.4) 09/02/18 15:22 Phosphorus 3.1 mg/dL (2.5-4.5) 09/02/18 15:22 Magnesium 1.9 mg/dL (1.6-2.3) 09/02/18 15:22 Total Bilirubin 0.4 mg/dL (0.2-1.3) 09/02/18 15:22 AST 22 U/L (14-36) 09/02/18 15:22 ALT 23 U/L (9-52) 09/02/18 15:22 Alkaline Phosphatase 59 U/L (38-126) 09/02/18 15:22 Total Protein 7.6 g/dL (6.3-8.3) 09/02/18 15:22 Albumin 4.2 g/dL (3.5-5.0) 09/02/18 15:22 Globulin 3.4 gm/dL (2.2-3.9) 09/02/18 15:22 Albumin/Globulin Ratio 1.3 (1.0-2.1) 09/02/18 15:22 Urine Color Yellow (YELLOW) 09/02/18 13:19 Urine Clarity Slight-cloudy (Clear) 09/02/18 13:19 Urine pH 7.0 (5.0-8.0) 09/02/18 13:19 Ur Specific Castell 1.014 (1.003-1.030) 09/02/18 13:19 Urine Protein Negative mg/dL (NEGATIVE) 09/02/18 13:19 Urine Glucose (UA) Normal mg/dL (Normal) 09/02/18 13:19 Urine Ketones Negative mg/dL (NEGATIVE) 09/02/18 13:19 Urine Blood Negative (NEGATIVE) 09/02/18 13:19 Urine Nitrate Negative (NEGATIVE) 09/02/18 13:19 Urine Bilirubin Negative (NEGATIVE) 09/02/18 13:19 Urine Urobilinogen Normal mg/dL (0.2-1.0) 09/02/18 13:19 Ur Leukocyte Esterase Neg Harini/uL (Negative) 09/02/18 13:19 Urine WBC (Auto) 1 /hpf (0-5) 09/02/18 13:19 Urine RBC (Auto) < 1 /hpf (0-3) 09/02/18 13:19 Ur Squamous Epith Cells 4 /hpf (0-5) 09/02/18 13:19 Amorphous Sediment Few /ul (<OCC) H 09/02/18 13:19 Urine Opiates Screen Negative (NEGATIVE) 09/02/18 13:19 Urine Methadone Screen Negative (NEGATIVE) 09/02/18 13:19 Ur Barbiturates Screen Positive (NEGATIVE) H 09/02/18 13:19 Ur Phencyclidine Scrn Negative (NEGATIVE) 09/02/18 13:19 Ur Amphetamines Screen Negative (NEGATIVE) 09/02/18 13:19 U Benzodiazepines Scrn Negative (NEGATIVE) 09/02/18 13:19 U Oth Cocaine Metabols Negative (NEGATIVE) 09/02/18 13:19 U Cannabinoids Screen Negative (NEGATIVE) 09/02/18 13:19 Alcohol, Quantitative < 10 mg/dl (0-10) 09/02/18 15:22 - Hospital Course Hospital Course: 27 y/o female with hx of polysubstance abuse, gastroparesis, seizures (from withdrawal), neuropathy brought to ED by boyfriend since pt hasn't spoken since yesterday. pt recently admitted to [facility] on 08/19-08/30 to psych; pt has seizure on way out of hospital, seen in ED, had another seizure and left AMA on Thursday PT HAD COMPLETE NORMAL NEURO W/U INCLUDING EEG CURRENTLY PT IS ADMITTED FOR CMS AND FAILURE TO THRIVE PT. WAS OBSERVED ON MEDICAL FLOOR AND GIVEN IV AND PSCH REEVALUATED MEDS PT IMROVED AND CURRENTLY HAS PSYCH DISORDER PT IS MEDICALLY CLEARED FOR D/C WILL D/W PT. AND PSYCH FOR PSYCH TRANSFER Discharge Exam - Head Exam Head Exam: ATRAUMATIC, NORMAL INSPECTION, NORMOCEPHALIC Discharge Plan - Follow Up Plan Condition: STABLE Disposition: HOME/ ROUTINE
[2018-09-06] MEDS ORDERED: Divalproex 500 mg DR Tab PO SCH (15:45)
[2018-09-06 16:15] VITALS: BP 119/84; PULSE 89; TEMP 97.8; O2SAT 97
--- NOTE | 2018-09-06 17:26 | PCM.PYCHPN ---
Psychiatric Progress Note - Psychiatric Progress Note Patient seen today, length of contact: 15 min Patient Chief Complaint: I am feeling fine Problems Identified/Issues Discussed: Patient was seen and evaluated, chart reviewed and discussed the staff. Patient reports improvement in her mood and denies any feelings of hopelessness and helplessness. She denies any suicidal ideation or homicidal ideation. She denies any auditory hallucinations. She is taking medication but denies any side effects. Medication Change: Yes Medical Record Reviewed: Yes Mental Status Examination - Cognitive Function Orientation: Person, Place, Situation, Time Memory: Intact Attention: WNL Concentration: WNL Association: WNL Fund of Knowledge: WNL - Mood Mood: Anxious - Affect Affect: Constricted - Speech Speech: Soft - Formal Thought Process Formal Thought Process: No Impairment - Suicidal Ideation Suicidal Ideation: No - Homicidal Ideation Homicidal Ideation: No Goal/Treatment Plan - Goal/Treatment Plan Need for Continued Stay: Remain at risks for inpatient hospitalization Progress Toward Problem(s) and Goals/Treatment Plan: Continue Depakote Continue Neurontin Continue Lexapro Patient psychiatrically stable and cleared for discharge
== END 2018-09-06 16:43 | disposition home or self-care (01) | DRG 101 ==
LOC: C.ER 10:52 → C.3T 16:40 → OBSVTOIN 09-04 18:11
PROVIDERS: ADMIT Internal Medicine Cardiovascular Disease; ATTEND Internal Medicine Cardiovascular Disease
DX: G40.909 Epilepsy, unspecified, not intractable, without status epilepticus (principal); F11.20 Opioid dependence, uncomplicated; F31.63 Bipolar disorder, current episode mixed, severe, without psychotic features; R62.7 Adult failure to thrive; F17.210 Nicotine dependence, cigarettes, uncomplicated; F12.20 Cannabis dependence, uncomplicated; F43.10 Post-traumatic stress disorder, unspecified; F44.9 Dissociative and conversion disorder, unspecified; F60.3 Borderline personality disorder; K31.84 Gastroparesis; G62.9 Polyneuropathy, unspecified; F19.10 Other psychoactive substance abuse, uncomplicated; F41.9 Anxiety disorder, unspecified